=== PATIENT | female | born 1990 | race Caucasian/White ===

== ENCOUNTER 2017-12-04 12:16 | Emergency (ER) | payer SELFPAY ==
--- NOTE | 2017-12-04 13:29 | EDPHYS ---
Physician Documentation [facility] Name: Veda Pratt Age: 27 yrs Sex: Female : 1990 Arrival Date: 12/04/2017 Time: 12:18 Bed 14 Private MD: None, None ED Physician Irvin Rodriguez HPI: 12/04 12:49 This 27 yrs old Female presents to ER via Ambulatory with complaints of cp Depression, Anxiety, HALLUCINATIONS. 12:50 The patient presents to the emergency department with depression. cp 12:50 Onset: The symptoms/episode began/occurred gradually. Past psychiatric history: Prior cp diagnosis: anxiety, Psychiatric medications include: none, the patient does not have a previous inpatient psychiatric history. Associated signs and symptoms: Pertinent negatives: hallucinations. 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 - Social history:: Smoking status: Patient/guardian denies using tobacco. - Ebola Screening: : Patient negative for fever greater than or equal to 101.5 degrees Fahrenheit, and additional compatible Ebola Virus Disease symptoms. ROS: 12:55 Constitutional: Negative for body aches, chills, fever, poor PO intake. cp 12:55 Eyes: Negative for injury, pain, redness, and discharge. cp 12:55 ENT: Negative for drainage from ear(s), ear pain, sore throat, difficulty swallowing, difficulty handling secretions. 12:55 Cardiovascular: Negative for chest pain, edema, palpitations. 12:55 Respiratory: Negative for cough, shortness of breath, wheezing. 12:55 Abdomen/GI: Negative for abdominal pain, nausea, vomiting, and diarrhea. 12:55 Skin: Negative for cellulitis, rash. 12:55 Neuro: Negative for altered mental status, headache, weakness. 12:55 Psych: Positive for depression, insomnia, Negative for drug dependence, alcohol dependence. 12:55 All other systems are negative. Exam: 12:58 Constitutional: The patient appears in no acute distress, alert, awake, non-toxic, well cp developed, well nourished. 12:58 Head/Face: Normocephalic, atraumatic. Eyes: Pupils equal round and reactive to light, cp extra-ocular motions intact. Lids and lashes normal. Conjunctiva and sclera are non-icteric and not injected. Cornea within normal limits. Periorbital areas with no swelling, redness, or edema. ENT: Nares patent. No nasal discharge, no septal abnormalities noted. Tympanic membranes are normal and external auditory canals are clear. Oropharynx with no redness, swelling, or masses, exudates, or evidence of obstruction, uvula midline. Mucous membranes moist. Neck: Trachea midline, no thyromegaly or masses palpated, and no cervical lymphadenopathy. Supple, full range of motion without nuchal rigidity, or vertebral point tenderness. No Meningismus. Chest/axilla: Normal chest wall appearance and motion. Nontender with no deformity. No lesions are appreciated. 12:58 Cardiovascular: Rate: tachycardic, Rhythm: regular, Heart sounds: murmur, not appreciated. 12:58 Respiratory: the patient does not display signs of respiratory distress, Respirations: normal, no use of accessory muscles, no retractions, no splinting, no tachypnea, labored breathing, is not present, Breath sounds: are clear throughout, no decreased breath sounds, no stridor, no wheezing. 12:58 Abdomen/GI: Inspection: abdomen appears normal, Bowel sounds: active, all quadrants, Palpation: abdomen is soft and non-tender, in all quadrants, rebound tenderness, is not appreciated, voluntary guarding, is not appreciated, involuntary guarding, is not appreciated. 12:58 Back: pain, is absent, ROM is normal. 12:58 Skin: cellulitis, is not appreciated, no rash present. 12:58 Neuro: Orientation: to person, place \T\ time. Mentation: lucid, able to follow commands, Cerebellar function: is grossly normal, Motor: moves all fours, strength is normal, Sensation: no obvious gross deficits. 12:58 Psych: Behavior/mood is depressed, Affect is calm, Judgement / Insight is normal. Delusions/hallucinations are not present. Vital Signs: 12:26 BP 147 / 89; Pulse 111; Resp 20; Temp 97.9; Pulse Ox 99% on R/A; ph MDM: 12:39 Patient medically screened. cp 13:46 Data reviewed: vital signs, nurses notes, and as a result, I will discharge patient. cp 13:46 Counseling: I had a detailed discussion with the patient and/or guardian regarding: the cp historical points, exam findings, and any diagnostic results supporting the discharge/admit diagnosis, to return to the emergency department if symptoms worsen or persist or if there are any questions or concerns that arise at home. 12/04 12:48 Order name: Acetaminophen 12/04 12:48 Order name: Basic Metabolic Panel 12/04 12:39 Order name: Urine Dipstick-Ancillary (obtain specimen) 12/04 12:39 Order name: Urine Test (obtain specimen) 12/04 12:48 Order name: EKG - Nurse/Tech 12/04 12:48 Order name: IV Saline Lock 12/04 12:48 Order name: Labs collected and sent cp Administered Medications: No medications were administered Disposition: 13:16 Co-signature as Attending Physician, Irvin Rodriguez MD Spoke with patient when rn declined treatment, and does not want anything done, he wants to take her home right now, she denies suicidal ideation/homicidal ideation, states would never hurt her children, is comfortable taking her home, is taking days off to be with her, came in to get MRI brain, I offered him blood work and CT head, he declines, has appt with psychiatrist in 10 days, no previous psychiatric history. Will dc home in care of , return precautions given and understood.. Disposition: 12/04/17 13:29 Discharged to Home. Impression: Depression. - Condition is Stable. - Discharge Instructions: Major Depressive Disorder. - Medication Reconciliation Form, Thank You Letter, Antibiotic Education, Prescription Opioid Use form. - Follow up: Private Physician; When: 1 - 2 days; Reason: Recheck today's complaints. - Problem is new. - Symptoms are unchanged. Signatures: Dispatcher [employer] EDMS Irvin Rodriguez MD MD rn Smirch, Shelby, RN RN ss Hall, Patricia, RN RN ph Jose Luis Torres PA PA Sharmila Beaulieu RN RN rb1 Corrections: (The following items were deleted from the chart) 13:23 12:49 CBC+H.LAB.BRZ ordered. EDMS EDMS 13:23 12:49 PROTIME (+INR)+COAG.LAB.BRZ ordered. EDMS EDMS 13:23 12:50 PTT, ACTIVATED+COAG.LAB.BRZ ordered. EDMS EDMS 13: 12:50 SALICYLATE+C.LAB.BRZ ordered. EDMS EDMS 13: 12:50 URINE DRUG SCREEN+CHEM UR.LAB.BRZ ordered. EDMS EDMS 13: 12:50 Head Brain Wo Cont+CT.RAD.BRZ ordered. EDMS EDMS 13:24 12:49 ETHANOL+C.LAB.BRZ ordered. EDMS EDMS 13:25 12:49 Acetaminophen Level ordered. EDMS EDMS 13: 12:49 Basic Metabolic Panel ordered. EDMS EDMS 13:25 12:49 HEPATIC FUNCTION+C.LAB.BRZ ordered. EDMS EDMS 13:30 13:29 12/04/2017 13:29 Discharged to Home. Impression: Adjustment disorder with cp depressed mood. Condition is Stable. Forms are Medication Reconciliation Form, Thank You Letter, Antibiotic Education, Prescription Opioid Use. Follow up: Private Physician; When: 1 - 2 days; Reason: Recheck today's complaints. Problem is new. Symptoms are unchanged. cp 13:48 13:30 12/04/2017 13:29 Discharged to Home. Impression: Depression. Condition is Stable. ss Discharge Instructions: Adjustment Disorder, Adult. Forms are Medication Reconciliation Form, Thank You Letter, Antibiotic Education, Prescription Opioid Use. Follow up: Private Physician; When: 1 - 2 days; Reason: Recheck today's complaints. Problem is new. Symptoms are unchanged. cp
--- NOTE | 2017-12-04 13:29 | ER ---
Nurse's Notes [facility] Name: Veda Pratt Age: 27 yrs Sex: Female : 1990 Arrival Date: 12/04/2017 Time: 12:18 Bed 14 Private MD: None, None Diagnosis: Depression Presentation: 12/04 12:21 Presenting complaint: Significant other states: " She has been really depressed and ph having mood swings. She has been hallucinating too." Reports pt hx of anxiety, when asked about stressors at home pt reports "demonic activity" Pt reports insomnia and visual hallucinations, denies ETOH or drug use, states " I tried to stab myself in the chest a few days ago but I don't want to hurt myself now, I'm just tired and want to sleep.". Transition of care: patient was not received from another setting of care. Onset of symptoms was December 04, 2017. Risk Assessment: Do you want to hurt yourself or someone else? Patient reports no desire to harm self or others. Other: denied at this time but reports trying to harm herself "a few days ago.". Initial Sepsis Screen: Does the patient meet any 2 criteria? No. Patient's initial sepsis screen is negative. Does the patient have a suspected source of infection? No. Patient's initial sepsis screen is negative. Care prior to arrival: None. 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 - Social history:: Smoking status: Patient/guardian denies using tobacco. - Ebola Screening: : Patient negative for fever greater than or equal to 101.5 degrees Fahrenheit, and additional compatible Ebola Virus Disease symptoms. Screenin:38 Abuse screen: Denies threats or abuse. Nutritional screening: No deficits noted. rb1 Tuberculosis screening: No symptoms or risk factors identified. Fall Risk None identified. Assessment: 12:38 General: Appears in no apparent distress. comfortable, Behavior is calm, cooperative, rb1 Denies fever. General: Complains of insomnia and depression. Pt. denies wanting to hurt herself or others. Pt. stated, "I am really tired and I need to sleep." is at bedside.. Pain: Denies pain. Neuro: Level of Consciousness is awake, alert, obeys commands, Oriented to person, place, time, situation. Cardiovascular: Capillary refill < 3 seconds is brisk in bilateral fingers. Respiratory: Airway is patent Respiratory effort is even, unlabored, Respiratory pattern is regular, symmetrical. GI: No signs and/or symptoms were reported involving the gastrointestinal system. : No signs and/or symptoms were reported regarding the genitourinary system. Derm: Skin is pink, warm \\T\\ dry. 13:30 Reassessment: Patient appears in no apparent distress at this time. No changes from rb1 previously documented assessment. Psych: 12:38 Subjective: Patient's mood is Hallucinations are visual, happened 2 days ago. rb1 Objective: Patient is cooperative, Speech is normal, Affect is appropriate. Pt denies substance abuse. 12:38 Safety Checks: Personal items have been removed. Door is open. Visitors are present. rb1 Vital Signs: 12:26 BP 147 / 89; Pulse 111; Resp 20; Temp 97.9; Pulse Ox 99% on R/A; ph ED Course: 12:18 Patient arrived in ED. sb2 12:19 None, None is Private Physician. sb2 12:26 Triage completed. ph 12:27 Arm band placed on. ph 12:38 Patient has correct armband on for positive identification. Bed in low position. Call rb1 light in reach. Side rails up X 1. Pulse ox on. NIBP on. at bedside. 12:39 Jose Luis Torres PA is PHCP. cp 12:39 Irvin Rodriguez MD is Attending Physician. cp 12:45 Safety Checks: Personal items have been removed. The door is open or patient has been rb1 placed in a hallway bed/chair. A family member and/or friend is present and encouraged to stay. Sitter present at this time. 13:00 Safety Checks: Personal items have been removed. The door is open or patient has been rb1 placed in a hallway bed/chair. A family member and/or friend is present and encouraged to stay. Sitter present at this time. 13:15 Safety Checks: Personal items have been removed. The door is open or patient has been rb1 placed in a hallway bed/chair. A family member and/or friend is present and encouraged to stay. Sitter present at this time. 13:30 Safety Checks: Personal items have been removed. The door is open or patient has been rb1 placed in a hallway bed/chair. A family member and/or friend is present and encouraged to stay. Sitter present at this time. 13:45 Safety Checks: Personal items have been removed. The door is open or patient has been rb1 placed in a hallway bed/chair. A family member and/or friend is present and encouraged to stay. Sitter present at this time. 13:47 No provider procedures requiring assistance completed. Patient did not have IV access ss during this emergency room visit. Administered Medications: No medications were administered Outcome: 13:29 Discharge ordered by . fabian 13:[address] Rodriguez had detailed discussion with patient and family about ss follow up instructions. Pt left prior to receiving discharge paperwork. 13:47 Condition: good 13:47 Instructed on follow up and referral plans. 13:48 Patient left the ED. ss Signatures: Olivia Crabtree, RN RN ss Kristy Padilla, RN RN Jose Luis De La Rosa, PA PA Sharmila Beaulieu, RN RN rb1 Mary Roblero sb2
[2017-12-04 14:02] VITALS: BP 147/89; TEMP 97.9; O2SAT 99
== END 2017-12-04 13:48 | disposition home or self-care (01) ==
LOC: ER 12:16
DX: F32.9 Major depressive disorder, single episode, unspecified (principal)
CPT/HCPCS: 99284

== ENCOUNTER 2017-12-06 05:42 | Emergency (ER) | payer SELFPAY ==
[2017-12-06] MEDS ORDERED: NA CHLORIDE 0.9% 1,000 ML ONE ×2 (06:09→07:29)
[2017-12-06 06:17] LABS: Arterial Blood Carboxyhemoglob 0.5 % (0-1.5); Blood Gas Oxyhemoglobin 97.2 % (94-97); Blood O2 Saturation 98.6 % (92-98.5)
[2017-12-06 06:19] LABS: Absolute Monocytes 1.1 K/uL (0.1-1.3); Absolute Neutrophil 9.2 K/uL (1.8-8.0); Basophils % 0.6 % (0-1.3); Eosinophils % 0.1 % (0-4.4); Lymphocytes % 8.8 % (15.3-44.8); MCH 31.4 pg (27.0-35.0); MCV 89.5 fL (80-100); MPV 8.5 fL (7.6-11.3); Monocytes % 9.4 % (3.3-12.3); RBC Red Blood Cell Count 4.58 M/uL (3.86-4.86)
[2017-12-06 06:22] LABS: Protime INR 1.12
[2017-12-06 06:32] LABS: Barbiturates NEGATIVE (NEGATIVE); Benzodiazepines POSITIVE (NEGATIVE); Cocaine NEGATIVE (NEGATIVE); METHAMPHETAM NEGATIVE (NEGATIVE); Methadone NEGATIVE (NEGATIVE); Opiates NEGATIVE (NEGATIVE); Phencyclidine NEGATIVE (NEGATIVE); THC Cannibis NEGATIVE (NEGATIVE)
[2017-12-06] MEDS ORDERED: ONDANSETRON 4 MG/2 ML VIAL ONE (06:37)
[2017-12-06 06:47] LABS: Urine Blood NEGATIVE (NEG); Urine Glucose NEGATIVE (NEG); Urine Protein 2+ (NEG); Urine Specific Gravity >1.030 (1.005-1.030)
[2017-12-06 06:50] LABS: ALT/SGPT 20 U/L (12-78); AST/SGOT 17 U/L (15-37); Albumin 4.2 g/dL (3.4-5.0); Alkaline Phosphatase 77 U/L (45-117); BUN Blood Urea Nitrogen 14 mg/dL (7-18); Bicarbonate 23 mmol/L (21-32); Bilirubin Direct 0.2 mg/dL (0-0.2); Bilirubin Total 0.4 mg/dL (0.2-1.0); Glucose Level 182 mg/dL (74-106); Protein, Total 8.3 g/dL (6.4-8.2); Sodium Level 140 mmol/L (136-145)
[2017-12-06] MEDS ORDERED: HALOPERIDOL LACT 5 MG/ML INJ ONE (07:29)
[2017-12-06] MEDS ORDERED: KCL 20 MEQ/100 mL IVPB 20 MEQ/100 ML BAG IV ONE (07:29)
[2017-12-06] MEDS ORDERED: LORazepam 2 MG/ML VIAL ONE ×2 (09:40→20:02)
--- NOTE | 2017-12-06 09:52 | RAD REPORT ---
EXAM DESCRIPTION: CT - Head Brain Wo Cont - 12/06/2017 8:59 am CLINICAL HISTORY: Confusion COMPARISON: None. TECHNIQUE: Computed axial tomography of the head was obtained. IV contrast was not requested. Preliminary report was generated by virtual radiologic in review prior to this dictation All CT scans are performed using dose optimization technique as appropriate and may include automated exposure control or mA/KV adjustment according to patient size. FINDINGS: An intracranial bleed is not seen . The ventricles are normal in caliber. No extra-axial fluid collection is noted. Fluid within the sinuses/ mastoids is not seen. IMPRESSION: No acute intracranial abnormality is seen. If patient's symptoms persist MRI of the bra in would be recommended.
--- NOTE | 2017-12-06 12:09 | EKG ---
Test Date: 2017-12-06 Test Time: 05:47:50 Assistant Womens Volleyball Coach: TAMMI MEASUREMENT RESULTS: Intervals: Rate: 117 NE: 170 QRSD: 90 QT: 318 QTc: 443 Douglas: P: 70 NE: 170 QRS: 80 T: 3 INTERPRETIVE STATEMENTS: Sinus tachycardia Nonspecific ST and T wave abnormality Abnormal ECG Compared to ECG 07/17/2011 10:42:14 ST (T wave) deviation now present Electronically Signed On 12-06-17 12:07:15 CDT by Bebeto Garduno
[2017-12-07] MEDS ORDERED: LORAZEPAM 0.5 MG TABLET ONE ×2 (08:11→17:27)
--- NOTE | 2017-12-08 01:39 | ER ---
Nurse's Notes [facility] Name: Veda Pratt Age: 27 yrs Sex: Female : 1990 Arrival Date: 12/06/2017 Time: 05:43 Bed 16 Private MD: Diagnosis: Hallucinations, unspecified Presentation: 12/06 05:55 Presenting complaint: EMS states: Pt was found running down the street naked and was tl2 combative with police. EMS gave 250 mg ketamine en route. Pt is tachycardic and hypertensive. Transition of care: patient was not received from another setting of care. Onset of symptoms was December 06, 2017. Risk Assessment: Do you want to hurt yourself or someone else? Patient reports no desire to harm self or others. Initial Sepsis Screen: Does the patient meet any 2 criteria? No. Patient's initial sepsis screen is negative. Does the patient have a suspected source of infection? No. Patient's initial sepsis screen is negative. Care prior to arrival: Medication(s) given: ketamine 250 mg IM IV initiated. 20 GA, in the right antecubital area, Glucose check: 214. 05:55 Method Of Arrival: EMS: [facility] tl2 05:55 Acuity: BEKA 2 tl2 Triage Assessment: 05:57 General: Appears in no apparent distress. Behavior is unresponsive. Pain: Unable to use tl2 pain scale. Patient is unresponsive. EENT: Eyes. Neuro: Level of Consciousness is unresponsive, Pupils are constricted, nystagmus noted. Cardiovascular: Patient's skin is warm and dry. Rhythm is sinus rhythm. Respiratory: Airway is patent Respiratory effort is even, unlabored, Respiratory pattern is regular, symmetrical. GI: No signs and/or symptoms were reported involving the gastrointestinal system. Derm: Skin is pink, warm \\T\\ dry. Historical: - Allergies: 05:57 No Known Allergies; tl2 - Home Meds: 05:57 None [Active]; tl2 - PMHx: 05:57 Anxiety; Headaches; tl2 - PSHx: 05:57 Tubal ligation; tl2 - Immunization history:: Adult Immunizations up to date. - Social history:: Smoking status: unknown. - Ebola Screening: : No symptoms or risks identified at this time. Screenin:58 Abuse screen: Denies threats or abuse. Denies injuries from another. Nutritional bp screening: No deficits noted. Tuberculosis screening: No symptoms or risk factors identified. Fall Risk None identified. Assessment: 05:53 General: Appears in no apparent distress. Behavior is SEDATED. General: RECD 27YO WF bp VIA EMS. PT INITIALLY SUBDUED BY PD WHILE RUNNING NAKED DOWN THE STREET AND SCREAMING "PRABHJOT WILL NOT PREVAIL." PT COMBATIVE WITH PD AND EMS, MEDICATED WITH 250MG KETAMINE IM EN ROUTE. Pain: Unable to use pain scale. Patient is unresponsive. Neuro: Level of Consciousness is unresponsive, Oriented to none. Cardiovascular: Rhythm is sinus tachycardia. Respiratory: Airway is patent Respiratory effort is even, unlabored, Respiratory pattern is regular, tachypnea. GI: No signs and/or symptoms were reported involving the gastrointestinal system. : No deficits noted. EENT: HORIZONTAL NYSTAGMUS. Derm: Bruising that is SCATTERED. Musculoskeletal: UNABLE TO ASSESS AT THIS TIME. 06:20 Reassessment: PT TO CT WITH RETAIL SALES ADVISOR. bp 06:35 Reassessment: PT VOMITING IN CT. MD NOTIFIED, PT MEDICATED. bp 07:20 Neuro: Level of Consciousness is awake, alert, obeys commands, Oriented to person, la1 place, time, Reports visual and auditory hallucinations for the last 3 weeks, pt denies HI/SI. Cardiovascular: Capillary refill < 3 seconds Patient's skin is warm and dry. Respiratory: Airway is patent Respiratory effort is even, unlabored, Respiratory pattern is regular, symmetrical. GI: No signs and/or symptoms were reported involving the gastrointestinal system. : No signs and/or symptoms were reported regarding the genitourinary system. 08:16 Reassessment: Pt laying in bed, arousable, denies discomfort. Family remains at bedside.jl7 09:10 Reassessment: [facility] at bedside. jl7 09:40 Reassessment: Pt appears to be agitated, ripped animal technician off, IV out of left AC, jl7 removed BP cuff and pulse ox. Provider notified, see MAR for orders. Family instructed to go to lobby if they need to talk so the pt can rest and to notify staff if they all leave. , mother and sister at bedside. 10:15 Reassessment: Pt laying in bed with eyes closed, respirations even and unlabored, no jl7 signs of distress noted at this time. 11:30 Reassessment: Patient and/or family updated on plan of care and expected duration. Pain jl7 level reassessed. Patient is alert, oriented x 3, equal unlabored respirations, skin warm/dry/pink. 13:30 Reassessment: Patient and/or family updated on plan of care and expected duration. Pain jl7 level reassessed. Patient is alert, oriented x 3, equal unlabored respirations, skin warm/dry/pink. 15:30 Reassessment: Pt sitting in bed visiting with family at this time. jl7 16:26 Reassessment: Patient appears in no apparent distress at this time. No changes from jl7 previously documented assessment. Patient and/or family updated on plan of care and expected duration. Pain level reassessed. Patient is alert, oriented x 3, equal unlabored respirations, skin warm/dry/pink. 18:12 Reassessment: Patient and/or family updated on plan of care and expected duration. Pain jl7 level reassessed. Patient is alert, oriented x 3, equal unlabored respirations, skin warm/dry/pink. Pt laying in bed, at bedside. Awaiting transfer. 19:22 Reassessment: Patient appears in no apparent distress at this time. Patient and/or tl2 family updated on plan of care and expected duration. Pain level reassessed. Patient is alert, oriented x 3, equal unlabored respirations, skin warm/dry/pink. General: Appears in no apparent distress. comfortable, Behavior is calm, cooperative, appropriate for age, Mother is at bedside. Pt asking when she will be able to go home. Explained warrant and that she will be required to stay and be transferred . Pain: Denies pain. Neuro: Level of Consciousness is awake, alert, obeys commands, Oriented to person, place, time, situation. Respiratory: Airway is patent Respiratory effort is even, unlabored, Respiratory pattern is regular, symmetrical. GI: No signs and/or symptoms were reported involving the gastrointestinal system. : No signs and/or symptoms were reported regarding the genitourinary system. Derm: Bruising that is scattered. 20:00 Reassessment: Patient appears in no apparent distress at this time. Pt requested tl2 medication for anxiety, TIER TRUCK DRIVER notified, new meds ordered see MAY. 12/07 00:42 Reassessment: Pt appears to be sleeping, RR even and unlabored. Mother at bedside and tl2 will be staying for the rest of the night. 07:50 Reassessment: Patient appears in no apparent distress at this time. pt and pts mother tw2 asking if pt can just go home and then follow up with a psychiatrist. Dr. Hendricks and myself present to explain the process and best course of continuation of care with pt and pts mother. Pt educated as to the need for transfer. Pt agreeable at this time. Pt explains that she has 3 kids at home that she doesn't want to leave for long periods of time. Currently waiting for bed assignment at this time. 08:45 Reassessment: pt was escorted to shower by Jerry Ellis at this time, room was cleaned tw2 and linens changed at this time. 09:45 Reassessment: Patient appears in no apparent distress at this time. No changes from tw2 previously documented assessment. Patient and/or family updated on plan of care and expected duration. Pain level reassessed. Patient is alert, oriented x 3, equal unlabored respirations, skin warm/dry/pink. mother remains at bedside. 10:35 Reassessment: Patient appears in no apparent distress at this time. No changes from tw2 previously documented assessment. Patient and/or family updated on plan of care and expected duration. Pain level reassessed. Patient is alert, oriented x 3, equal unlabored respirations, skin warm/dry/pink. mother remains at bedside at this time. 11:50 Reassessment: Patient appears in no apparent distress at this time. No changes from tw2 previously documented assessment. Patient and/or family updated on plan of care and expected duration. Pain level reassessed. Patient is alert, oriented x 3, equal unlabored respirations, skin warm/dry/pink. 12:50 Reassessment: Patient appears in no apparent distress at this time. No changes from tw2 previously documented assessment. Patient and/or family updated on plan of care and expected duration. Pain level reassessed. Patient is alert, oriented x 3, equal unlabored respirations, skin warm/dry/pink. 13:54 Reassessment: Patient appears in no apparent distress at this time. No changes from tw2 previously documented assessment. Patient and/or family updated on plan of care and expected duration. Pain level reassessed. Patient is alert, oriented x 3, equal unlabored respirations, skin warm/dry/pink. 14:48 Reassessment: Patient appears in no apparent distress at this time. No changes from tw2 previously documented assessment. Patient and/or family updated on plan of care and expected duration. Pain level reassessed. Patient is alert, oriented x 3, equal unlabored respirations, skin warm/dry/pink. pts remains at bedside at this time. 15:50 Reassessment: Patient appears in no apparent distress at this time. No changes from tw2 previously documented assessment. Patient and/or family updated on plan of care and expected duration. Pain level reassessed. Patient is alert, oriented x 3, equal unlabored respirations, skin warm/dry/pink. 16:50 Reassessment: Patient appears in no apparent distress at this time. No changes from tw2 previously documented assessment. Patient and/or family updated on plan of care and expected duration. Pain level reassessed. Patient is alert, oriented x 3, equal unlabored respirations, skin warm/dry/pink. 17:15 Reassessment: Patient appears in no apparent distress at this time. Patient and/or tw2 family updated on plan of care and expected duration. Pain level reassessed. Patient is alert, oriented x 3, equal unlabored respirations, skin warm/dry/pink. pt c/o anxiety, medicated as ordered per Dr. Hendricks. 18:22 Reassessment: Patient appears in no apparent distress at this time. Patient and/or tw2 family updated on plan of care and expected duration. Pain level reassessed. Patient is alert, oriented x 3, equal unlabored respirations, skin warm/dry/pink. 19:08 Reassessment: Patient appears in no apparent distress at this time. Patient and/or aa1 family updated on plan of care and expected duration. Pain level reassessed. Patient is alert, oriented x 3, equal unlabored respirations, skin warm/dry/pink. Pt awaiting acceptance to psychiatric facility for suspected new onset of schizophrenia. Pt denies thoughts of harming self or others. Mother at bedside Patient denies pain at this time. 22:04 Reassessment: Patient appears in no apparent distress at this time. No changes from aa1 previously documented assessment. Patient and/or family updated on plan of care and expected duration. Pain level reassessed. Patient is alert, oriented x 3, equal unlabored respirations, skin warm/dry/pink. Pt still awaiting transfer to psychiatric facility. 12/08 01:51 Reassessment: Patient appears in no apparent distress at this time. Patient is alert, aa1 oriented x 3, equal unlabored respirations, skin warm/dry/pink. Per TIER TRUCK DRIVER, ok to d/c pt at this time with mother and continue with f/u appt they have scheduled for the . Discussed d/c \\T\\ f/u instructions with pt \\T\\ mother; denies questions or concerns at this time. Vital Signs: 12/06 05:57 BP 162 / 105; Pulse 118; Resp 21; Temp 98.6(R); Pulse Ox 98% on R/A; Weight 81.65 kg; tl2 Height 5 ft. 8 in. (172.72 cm); 07:38 BP 138 / 89; Pulse 74; Resp 16; Pulse Ox 99% on R/A; la1 08:35 BP 120 / 82; Pulse 84; Resp 16 S; Pulse Ox 100% on R/A; jl7 11:50 BP 111 / 63; Pulse 98; Resp 17; Pulse Ox 99% ; mh5 12:50 BP 125 / 88; Pulse 84; Resp 17; Pulse Ox 100% on R/A; mh5 14:10 BP 119 / 58; Pulse 80; Resp 17; Pulse Ox 98% on R/A; mh5 16:27 BP 140 / 89; Pulse 95; Resp 16 S; Pulse Ox 98% on R/A; jl7 18:11 BP 130 / 83; Pulse 79; Resp 16 S; Pulse Ox 98% on R/A; jl7 12/07 01:45 BP 150 / 91; Pulse 109; Resp 20; Pulse Ox 99% on R/A; tl2 06:44 BP 145 / 82; Pulse 100; Resp 20; Temp 98.8; Pulse Ox 99% on R/A; oe 13:56 BP 130 / 83; Pulse 87; Resp 17; Temp 98.4(O); Pulse Ox 100% on R/A; tw2 18:25 BP 119 / 74; Pulse 88; Resp 17; Pulse Ox 99% on R/A; tw2 22:04 BP 128 / 74; Pulse 79; Resp 16; Temp 98.4; Pulse Ox 99% on R/A; Pain 0/10; aa1 12/06 05:57 Body Mass Index 27.37 (81.65 kg, 172.72 cm) tl2 ED Course: 12/06 05:43 Patient arrived in ED. ds1 05:53 Oziel Worthington, RN is Primary Nurse. bp 05:57 Triage completed. tl2 05:57 Straight cath inserted, using sterile technique, 16 Fr. Specimen obtained. Returned bp clear yellow urine. Maintain EMS IV. Dressing intact. Good blood return noted. Site clean \\T\\ dry. Gauge \\T\\ site: 20 GAUGE RIGHT AC. 05:57 Arm band placed on right wrist. tl2 05:58 Patient has correct armband on for positive identification. Placed in gown. Bed in low bp position. Call light in reach. Side rails up X2. 06:00 Greyson Delgado MD is Attending Physician. gs 06:05 Inserted saline lock: 20 gauge in left antecubital area, using aseptic technique. Blood cc3 collected. 06:58 CT Head Brain wo Cont In Process Unspecified. EDMS 06:59 CT completed. Patient was nauseous during exam. ER nurse (Oziel) came to give kw1 medication to help with nauseouness. Patient moved back from CT. 07:00 Steffen Serna PA is PHCP. jr8 07:01 Vinay Garcia MD is Attending Physician. jr8 07:45 [facility] was called for assessment on the patient for placement. They are notifying ag the strategic sourcing consultantcall or contact centre manager. 08:16 Primary Nurse role handed off by Oziel Worthington RN jl7 08:16 Marichuy Coleman RN is Primary Nurse. jl7 10:24 Elli from [facility] call to notified that they have no beds available. ag 10:35 Nyla from [facility] call and said they have no beds for men and women. Possibly ag Friday they might have beds after discharges. 10:42 Noemy with [facility] has no beds they are pending dischages. ag 11:45 Safety checks: Items removed: yes. Door open/sign placed on door: yes. Family/friend mh5 present: no. Sitter present: Yes. 12:00 Safety checks: Items removed: yes. Door open/sign placed on door: yes. Family/friend mh5 present: yes. Family/friends encouraged to stay with patient. Sitter present: Yes. 12:15 Safety checks: Items removed: yes. Door open/sign placed on door: yes. Family/friend mh5 present: yes. Family/friends encouraged to stay with patient. Sitter present: Yes. 12:17 Diet: Patient given a regular meal tray. mh5 12:30 Safety checks: Items removed: yes. Door open/sign placed on door: yes. Family/friend mh5 present: yes. Sitter present: Yes. 12:45 Safety checks: Items removed: yes. Door open/sign placed on door: yes. Family/friend mh5 present: yes. Sitter present: Yes. 13:00 Safety checks: Items removed: yes. Door open/sign placed on door: yes. Family/friend mh5 present: yes. Sitter present: Yes. 13:15 Safety checks: Items removed: yes. Door open/sign placed on door: yes. Family/friend mh5 present: yes. Family/friends encouraged to stay with patient. Sitter present: Yes. 13:30 Safety checks: Items removed: yes. Door open/sign placed on door: yes. Family/friend mh5 present: yes. Family/friends encouraged to stay with patient. Sitter present: Yes. 13:45 Safety checks: Items removed: yes. Door open/sign placed on door: yes. Family/friend mh5 present: yes. Family/friends encouraged to stay with patient. Sitter present: Yes. 14:00 Safety checks: Items removed: yes. Door open/sign placed on door: yes. Family/friend mh5 present: yes. Sitter present: Yes. 14:15 Safety checks: Items removed: yes. Door open/sign placed on door: yes. Family/friend mh5 present: yes. Family/friends encouraged to stay with patient. Sitter present: Yes. 14:30 Safety checks: Items removed: yes. Door open/sign placed on door: yes. Family/friend mh5 present: yes. Family/friends encouraged to stay with patient. Sitter present: Yes. 18:06 PHCP role handed off by Steffen Serna PA pm1 18:06 Yousuf Wong NP is PHCP. pm1 18:53 Primary Nurse role handed off by Marichuy Coleman RN jl7 20:30 [facility] called back and turned down the transfer due to lack of staff. rg2 20:36 Angeline Talavera RN is Primary Nurse. tl2 12/07 05:25 [facility] has no beds. need to re-fax in the morning. rg2 06:56 Primary Nurse role handed off by Angeline Talavera RN tw2 06:56 Lana Draper RN is Primary Nurse. tw2 07:40 Attending Physician role handed off by Vinay Garcia MD ma2 07:40 Tyron Hendricks MD is Attending Physician. ma2 08:00 Spoke to Anita Marcus at [facility] about status and was informed that she does have a ag bed.The bed is being held for her until adequately staffed on Friday. 08:39 All clinical's refaxed to all psych facilities. ag 09:26 Ciro at [facility] have no beds. They are at capacity. ag 09:50 Nyla at [facility] called and informed us still no beds available. ag 12:32 [facility] called and said Dr. Holly has denied the patient for ag transfer because our provider did not notify him that she was combative and given Ketamine prior to arrival. So for this matter and she has been denied for being combative. 12/08 01:53 No provider procedures requiring assistance completed. IV discontinued, intact, aa1 bleeding controlled, No redness/swelling at site. Pressure dressing applied. Administered Medications: 12/06 06:05 Drug: NS 0.9% 1000 ml Route: IV; Rate: 1 bolus; Site: left antecubital; bp 06:35 Drug: Zofran 8 mg Route: IVP; Site: left antecubital; bp 06:36 Follow up: Response: Nausea is decreased bp 08:11 Follow up: Response: No adverse reaction la1 07:37 Drug: Potassium Chloride 20 mEq Route: IV; Rate: calculated rate; Site: right la1 antecubital; 07:37 Drug: NS 0.9% 1000 ml Route: IV; Rate: 125 ml/hr; Site: right antecubital; la1 07:37 Drug: HALdol 5 mg Route: IVP; Site: right antecubital; la1 08:11 Follow up: Response: Nausea is decreased la1 09:40 Drug: Ativan 2 mg Route: IVP; Site: right antecubital; jl7 10:00 Follow up: Response: No adverse reaction; Marked relief of symptoms jl7 20:00 Drug: Ativan 1 mg Route: IVP; Site: right antecubital; tl2 21:00 Follow up: Response: No adverse reaction; Marked relief of symptoms tl2 12/07 08:05 Drug: Ativan 0.5 mg Route: PO; tw2 09:33 Follow up: Response: No adverse reaction tw2 17:21 Drug: Ativan 0.5 mg Route: PO; tw2 17:40 Follow up: Response: No adverse reaction tw2 Outcome: 12/08 01:38 Discharge ordered by MD. pm1 01:53 Discharged to home ambulatory, with family. aa1 01:53 Condition: good 01:53 Discharge instructions given to patient, family, Instructed on discharge instructions, follow up and referral plans. medication usage, Demonstrated understanding of instructions, follow-up care, medications, Prescriptions given X 2. 01:54 Patient left the ED. aa1 Signatures: Dispatcher [employer] EDMS Lu Moya rg2 Lili Thomas RN RN aa1 Karen Ayoub ds1 Steffen Serna PA PA jr8 Balaji Self RN RN la1 Kaitlynn Whitney Patrick, APARNA TIER TRUCK DRIVER pm1 Lana Draper RN RN tw2 Angeline Talavera RN RN tl2 Karri Buckley Maria Marichuy Kay RN RN jl7 Greyson Delgado MD MD gs Peltier, Brian, RN RN bp Wilhelm, Kimberly kw1 Tyron Hendricks MD MD ma2 Mercedes López cc3 Corrections: (The following items were deleted from the chart) 12/06 10:39 10:35 Nyla from [facility] call and said they have no beds for men and women. ag Possibly Friday they might have beds. ag 11:53 11:48 Safety checks: Items removed: yes. Door open/sign placed on door: yes. [facility] Family/friend present: no. Sitter present: Yes. [facility] 12/07 01:46 01:45 BP 151 / 90; Pulse 109bpm; Resp 18bpm; Pulse Ox 100% RA; oe oe
--- NOTE | 2017-12-08 01:39 | EDPHYS ---
Physician Documentation [facility] Name: Veda Pratt Age: 27 yrs Sex: Female : 1990 Arrival Date: 12/06/2017 Time: 05:43 Bed 16 Private MD: ED Physician Tyron Hendricks HPI: 12/06 06:39 This 27 yrs old Female presents to ER via EMS with complaints of Altered gs Mental Status. 06:39 The patient presents with decreased mental status. Onset: The symptoms/episode gs began/occurred acutely, just prior to arrival. Possible causes: drug use, and ems gave pt 250 of ketamine. Unable to obtain HPI due to patient distress. pt delusional running naked in street, delirious. Historical: - Allergies: 05:57 No Known Allergies; tl2 - Home Meds: 05:57 None [Active]; tl2 - PMHx: 05:57 Anxiety; Headaches; tl2 - PSHx: 05:57 Tubal ligation; tl2 - Immunization history:: Adult Immunizations up to date. - Social history:: Smoking status: unknown. - Ebola Screening: : No symptoms or risks identified at this time. ROS: 06:39 Unable to obtain ROS due to patient distress. gs Exam: 06:38 ECG was reviewed by the Attending Physician. gs 06:39 Head/Face: Normocephalic, atraumatic. Eyes: Pupils equal round and reactive to light, gs extra-ocular motions intact. Lids and lashes normal. Conjunctiva and sclera are non-icteric and not injected. Cornea within normal limits. Periorbital areas with no swelling, redness, or edema. ENT: Nares patent. No nasal discharge, no septal abnormalities noted. Tympanic membranes are normal and external auditory canals are clear. Oropharynx with no redness, swelling, or masses, exudates, or evidence of obstruction, uvula midline. Mucous membranes moist. Neck: Trachea midline, no thyromegaly or masses palpated, and no cervical lymphadenopathy. Supple, full range of motion without nuchal rigidity, or vertebral point tenderness. No Meningismus. Chest/axilla: Normal chest wall appearance and motion. Nontender with no deformity. No lesions are appreciated. 06:39 Constitutional: The patient appears lethargic. 06:39 Cardiovascular: Rate: tachycardic, Rhythm: regular, Pulses: no pulse deficits are appreciated. 06:39 Respiratory: the patient does not display signs of respiratory distress, Respirations: normal, Breath sounds: are clear throughout, handling secretions no drooling choking. 06:39 Abdomen/GI: Palpation: abdomen is soft and non-tender. 06:39 Musculoskeletal/extremity: Exam is negative for acute changes. 06:39 Skin: Exam negative for acute changes. 06:39 Neuro: Orientation: Not oriented to person, place, time, situation, Cranial nerves: Nystagmus with fast component in inner aspect of conjuctiva of right eye and outer aspect of conjuctiva of left eye. disconjugate gaze. Vital Signs: 05:57 BP 162 / 105; Pulse 118; Resp 21; Temp 98.6(R); Pulse Ox 98% on R/A; Weight 81.65 kg; tl2 Height 5 ft. 8 in. (172.72 cm); 07:38 BP 138 / 89; Pulse 74; Resp 16; Pulse Ox 99% on R/A; la1 08:35 BP 120 / 82; Pulse 84; Resp 16 S; Pulse Ox 100% on R/A; jl7 11:50 BP 111 / 63; Pulse 98; Resp 17; Pulse Ox 99% ; mh5 12:50 BP 125 / 88; Pulse 84; Resp 17; Pulse Ox 100% on R/A; mh5 14:10 BP 119 / 58; Pulse 80; Resp 17; Pulse Ox 98% on R/A; mh5 16:27 BP 140 / 89; Pulse 95; Resp 16 S; Pulse Ox 98% on R/A; jl7 18:11 BP 130 / 83; Pulse 79; Resp 16 S; Pulse Ox 98% on R/A; jl7 12/07 01:45 BP 150 / 91; Pulse 109; Resp 20; Pulse Ox 99% on R/A; tl2 06:44 BP 145 / 82; Pulse 100; Resp 20; Temp 98.8; Pulse Ox 99% on R/A; oe 13:56 BP 130 / 83; Pulse 87; Resp 17; Temp 98.4(O); Pulse Ox 100% on R/A; tw2 18:25 BP 119 / 74; Pulse 88; Resp 17; Pulse Ox 99% on R/A; tw2 22:04 BP 128 / 74; Pulse 79; Resp 16; Temp 98.4; Pulse Ox 99% on R/A; Pain 0/10; aa1 12/06 05:57 Body Mass Index 27.37 (81.65 kg, 172.72 cm) tl2 MDM: 12/06 06:01 Patient medically screened. 06:39 Data reviewed: vital signs, nurses notes, lab test result(s), radiologic studies. gs 09:00 Data interpreted: Pulse oximetry: on room air is 100 %. Counseling: I had a detailed jr8 discussion with the patient and/or guardian regarding: the historical points, exam findings, and any diagnostic results supporting the discharge/admit diagnosis, lab results, radiology results. ED course: After patient woke up more from sedation I was able to talk to her and family. Patient has been having subtle psychiatric changes over the past couple of weeks from what family has said. Stated that it became acute worse over the past 5 days. Noticed that when she is praying was speaking in different tongues. Would say she sees angles and sometime could not understand her children . 16:13 ED course: Did Doc-Doc with [facility]. Would hold bed and accept. Pending bed jr8 assignment though due to her acuity. Stated that they will have to have one of there higher acuity beds open which they are waiting for opening . 20:30 ED course: [facility] called back and canceled transfer due lack of staff availability. pm1 12/08 01:38 ED course: Patient and mother want to go home. Patient denies homicidal or suicidal pm1 ideation. Patient has not had any hallucinations during the ER visit with the medications given. She believes that it might have been triggered by anxiety and the Ativan has been working well. Patient's has set up an appointment with psychiatrist on 12/16. Patient would like some medications, Ativan, until she is seen by the psychiatrist. Discussed patient's wishes with Dr. Delgado: patient can be discarded with Risperdal daily and Ativan PRN. Patient has good family support and patient feels comfortable going home since she has not had any further hallucinations during ER visit . 12/06 05:57 Order name: Urine Dipstick--Ancillary (enter results); Complete Time: 07:02 ms 12/06 05:57 Order name: Urine --Ancillary (enter results); Complete Time: 07:02 va 12/06 06:00 Order name: Acetaminophen; Complete Time: 07:02 12/06 06:00 Order name: Basic Metabolic Panel; Complete Time: 07:02 12/06 06:00 Order name: CBC with Diff; Complete Time: 07:02 12/06 06:00 Order name: ETOH Level; Complete Time: 07:02 12/06 06:00 Order name: Hepatic Function; Complete Time: 07:02 12/06 06:00 Order name: PT-INR; Complete Time: 07:02 12/06 06:00 Order name: Urine Drug Screen; Complete Time: 07:02 12/06 06:00 Order name: ABG; Complete Time: 07:02 12/06 06:00 Order name: CT Head Brain wo Cont; Complete Time: 10:05 12/06 06:45 Order name: CPK; Complete Time: 08:29 12/06 06:00 Order name: EKG; Complete Time: 06:00 12/06 11:23 Order name: Diet Regular; Complete Time: 11:24 em 12/06 16:21 Order name: Diet Regular; Complete Time: 16:21 7 12/07 05:11 Order name: Diet Regular; Complete Time: 05:11 2 12/07 08:13 Order name: Diet Regular; Complete Time: 08:13 2 12/07 10:45 Order name: Diet Regular; Complete Time: 10:46 5 12/07 10:45 Order name: Diet Regular; Complete Time: 10:46 [facility] 12/07 16:42 Order name: Diet Regular; Complete Time: 16:42 2 12/07 16:42 Order name: Diet Regular; Complete Time: 16:42 [facility] 12/06 06:00 Order name: EKG - Nurse/Tech; Complete Time: 06:02 12/06 06:00 Order name: IV Saline Lock; Complete Time: 06:02 12/06 06:00 Order name: Labs collected and sent; Complete Time: 06:02 12/06 06:00 Order name: Urine Dipstick-Ancillary (obtain specimen); Complete Time: 06:02 EC/15 06:38 Rate is 117 beats/min. Rhythm is regular. WV interval is normal. QRS interval is gs normal. QT interval is normal. T waves are Flattened. Clinical impression: NSR w/ Non-specific ST/T Changes. Interpreted by me. Administered Medications: 06:05 Drug: NS 0.9% 1000 ml Route: IV; Rate: 1 bolus; Site: left antecubital; bp 06:35 Drug: Zofran 8 mg Route: IVP; Site: left antecubital; bp 06:36 Follow up: Response: Nausea is decreased bp 08:11 Follow up: Response: No adverse reaction la1 07:37 Drug: Potassium Chloride 20 mEq Route: IV; Rate: calculated rate; Site: right la1 antecubital; 07:37 Drug: NS 0.9% 1000 ml Route: IV; Rate: 125 ml/hr; Site: right antecubital; la1 07:37 Drug: HALdol 5 mg Route: IVP; Site: right antecubital; la1 08:11 Follow up: Response: Nausea is decreased la1 09:40 Drug: Ativan 2 mg Route: IVP; Site: right antecubital; jl7 10:00 Follow up: Response: No adverse reaction; Marked relief of symptoms jl7 20:00 Drug: Ativan 1 mg Route: IVP; Site: right antecubital; tl2 21:00 Follow up: Response: No adverse reaction; Marked relief of symptoms tl2 12/07 08:05 Drug: Ativan 0.5 mg Route: PO; tw2 09:33 Follow up: Response: No adverse reaction tw2 17:21 Drug: Ativan 0.5 mg Route: PO; tw2 17:40 Follow up: Response: No adverse reaction tw2 Disposition: 12/08 07:53 Co-signature as Attending Physician, Vinay Garcia MD I agree with the assessment and wa plan of care. Disposition: 12/08/17 01:38 Discharged to Home. Impression: Hallucinations, unspecified. - Condition is Stable. - Prescriptions for risperidone 2 mg Oral tablet - take 1 tablet by ORAL route once daily for 10 days; 10 tablet. Ativan 0.5 mg Oral Tablet - take 1 tablet by ORAL route every 8 hours As needed; 10 tablet. - SBAR form, Medication Reconciliation Form, Thank You Letter form. - Follow up: Emergency Department; When: As needed; Reason: Worsening of condition. Follow up: Private Physician; When: 2 - 3 days; Reason: Recheck today's complaints, Continuance of care, Re-evaluation by your physician. - Problem is new. - Symptoms have improved. Signatures: Dispatcher [employer] EDMS Lili Thomas, RN RN aa1 Steffen Serna, SHARONDA PA jr8 Balaji Self RN RN la1 Yousuf Wong, REED POLISHER REED POLISHER pm1 Lana Draper RN RN tw2 Angeline Talavera, RN RN tl2 Marichuy Coleman RN RN jl7 Greyson Delgado MD MD gs Appiah, William, MD MD wa Peltier, Brian RN RN bp Corrections: (The following items were deleted from the chart) 01:54 01:38 12/08/2017 01:38 Discharged to Home. Impression: Hallucinations, unspecified. aa1 Condition is Stable. Forms are SBAR form, Medication Reconciliation Form, Thank You Letter, Antibiotic Education, Prescription Opioid Use. Follow up: Emergency Department; When: As needed; Reason: Worsening of condition. Follow up: Private Physician; When: 2 - 3 days; Reason: Recheck today's complaints, Continuance of care, Re-evaluation by your physician. Problem is new. Symptoms have improved. pm1
[2017-12-08 02:12] VITALS: TEMP 98.4
[2017-12-08 02:13] VITALS: O2SAT 99
[2017-12-08 02:14] VITALS: BP 128/74
== END 2017-12-08 01:54 | disposition home or self-care (01) ==
LOC: ER 05:42
DX: R44.3 Hallucinations, unspecified (principal)
CPT/HCPCS: 36415; 51702; 70450; 80048; 80076; 80307; 80320; 80329; 81003; 81025; 82550; 82805; 85025; 85610; 93005; 99285; J1630; J2405; J7030

== ENCOUNTER 2019-03-15 10:42 | Emergency (ER) | payer SELFPAY ==
--- NOTE | 2019-03-15 11:27 | ER ---
Nurse's Notes [facility] Name: Veda Pratt Age: 28 yrs Sex: Female : 1990 Arrival Date: 03/15/2019 Time: 10:44 Bed 8 Private MD: Diagnosis: Anxiety disorder, unspecified Presentation: 03/15 10:47 Presenting complaint: Patient states: denies visual hallucinations but reports auditory sv hallucination where she hears noises. Pt denies suicidal or homicidal ideation. states: "She's been getting these waves of paranoia, she's not getting enough sleep and she's been getting these thoughts regarding her safety." Pt has seen [facility] and was prescribed medication but feel like it is not working. Transition of care: patient was not received from another setting of care. Onset of symptoms was March 15, 2019. Risk Assessment: Do you want to hurt yourself or someone else? Patient reports no desire to harm self or others. Care prior to arrival: None. 10:47 Method Of Arrival: Ambulatory sv 10:47 Acuity: BEKA 2 sv 10:51 Note Reports that she only took Risperdal for a few days and stopped taking it. Reports sv her sister (who is a nurse) gave her some Abilify to take and took a day of that medicine. 11:38 Initial Sepsis Screen: Does the patient meet any 2 criteria? HR > 90 bpm. No. Patient's ph initial sepsis screen is negative. Does the patient have a suspected source of infection? No. Patient's initial sepsis screen is negative. Historical: - Allergies: 10:51 No Known Allergies; sv - Home Meds: 10:51 Risperdal Oral [Active]; sv - PMHx: 10:51 Anxiety; Headaches; Schizoeffect; sv - PSHx: 10:51 Tubal ligation; sv - Immunization history:: Adult Immunizations unknown. - Social history:: Patient/guardian denies using alcohol, street drugs, The patient lives with family, Smoking status: Patient/guardian denies using tobacco. - Family history:: not pertinent. - Ebola Screening: : No symptoms or risks identified at this time. - Hospitalizations: : No recent hospitalization is reported. Screenin:37 Abuse screen: Denies threats or abuse. Denies injuries from another. Nutritional ph screening: No deficits noted. Tuberculosis screening: No symptoms or risk factors identified. Fall Risk None identified. Assessment: 11:40 General: Appears in no apparent distress. comfortable, well groomed, Behavior is calm, ph cooperative, appropriate for age. Pain: Denies pain. Neuro: Level of Consciousness is awake, alert, obeys commands, Oriented to person, place, time, situation. Cardiovascular: Capillary refill < 3 seconds in bilateral fingers Patient's skin is warm and dry. Respiratory: Airway is patent Respiratory effort is even, unlabored, Respiratory pattern is regular, symmetrical. Derm: Skin is intact, is healthy with good turgor, Skin is pink, warm \\T\\ dry. Musculoskeletal: Circulation, motion, and sensation intact. Range of motion: intact in all extremities. Psych: 11:38 Subjective: Patient's mood is sad, Delusions are denied, Hallucinations are auditory, ph Having thoughts of denies HI or SI. Objective: Patient is cooperative, Speech is normal, Affect is appropriate. Suicide Risk Assessment: Sad Person Scale: Sex of patient: Female: Score 0 points. Age of patient: Score 1 point if patient 15-34. Depression: Score 0 point if signs of depression are not present. Previous Attempt: Score 1 point if patient has previously attempted suicide. Substance Abuse: Score 0 point if patient does not abuse alcohol or drugs. Rational Thinking: Score 0 point if patient has rational thinking. Social Support: Score 0 if social support is present/available. Organized Plan: Score 0 if patient did not have an organized plan in place. Relationship: Score 0 point if patient has a spouse or domestic partner. Chronic Sickness: Score 0 point if patient does not have a chronic illness, debilitating, or severe disorder. TOTAL POINTS: If total points are 0-2, proposed clinical action is to send home with follow-up. Safety Checks: Personal items have not been removed. Door is closed to patient's room. Visitors are present. pt not suicidal or homicidal. Pt denies substance abuse. Vital Signs: 10:52 BP 139 / 105; Pulse 146; Resp 16; Temp 97.9; Pulse Ox 98% ; Weight 77.11 kg; Height 5 sv ft. 5 in. (165.10 cm); Pain 0/10; 11:37 BP 127 / 98; Pulse 115; Resp 18; Temp 98.0; Pulse Ox 99% on R/A; ph 10:52 Body Mass Index 28.29 (77.11 kg, 165.10 cm) sv ED Course: 10:44 Patient arrived in ED. as 10:50 Triage completed. sv 10:52 Arm band placed on. sv 10:55 Tyron Hendricks MD is Attending Physician. ma2 11:37 Kristy Padilla, RN is Primary Nurse. ph 11:38 No provider procedures requiring assistance completed. Patient did not have IV access ph during this emergency room visit. 11:40 Patient has correct armband on for positive identification. Bed in low position. Side ph rails up X 1. Pulse ox on. NIBP on. Door closed. Noise minimized. Warm blanket given. Administered Medications: 11:45 Drug: Ativan 1 mg Route: PO; ph 11:53 Follow up: Response: No adverse reaction ph Outcome: 11:26 Discharge ordered by . ma2 11:45 Patient left the ED. ph 11:45 Discharged to home ambulatory, with significant other. ph 11:45 Condition: good 11:45 Discharge instructions given to patient, significant other, Instructed on discharge instructions, follow up and referral plans. medication usage, Demonstrated understanding of instructions, follow-up care, medications, Prescriptions given X 1. Signatures: Opal Thompson RN RN Salma Yang as Kristy Padilla RN RN Tyron Hendricks MD MD [facility] Corrections: (The following items were deleted from the chart) 10:54 10:47 Acuity: BEKA 3 sv sv 10:54 10:52 Resp 16bpm; Pulse Ox 98%; Temp 97.9F; 77.11 kg; Height 5 ft. 5 in.; BMI: 28.2; sv Pain 0/10; sv
--- NOTE | 2019-03-15 11:27 | EDPHYS ---
Physician Documentation [facility] Name: Veda Pratt Age: 28 yrs Sex: Female : 1990 Arrival Date: 03/15/2019 Time: 10:44 Bed 8 Private MD: ED Physician Tyron Hendricks HPI: 03/15 11:24 This 28 yrs old Female presents to ER via Ambulatory with complaints of Psych ma2 Problem. 11:24 The patient presents to the emergency department with anxiety. Onset: The ma2 symptoms/episode began/occurred gradually, 1 week(s) ago. Associated signs and symptoms: Pertinent negatives: anxiety, chills, hallucinations, paranoia, shortness of breath, suicide ideation. Severity of symptoms: At their worst the symptoms were very mild in the emergency department the symptoms are unchanged. Historical: - Allergies: 10:51 No Known Allergies; sv - Home Meds: 10:51 Risperdal Oral [Active]; sv - PMHx: 10:51 Anxiety; Headaches; Schizoeffect; sv - PSHx: 10:51 Tubal ligation; sv - Immunization history:: Adult Immunizations unknown. - Social history:: Patient/guardian denies using alcohol, street drugs, The patient lives with family, Smoking status: Patient/guardian denies using tobacco. - Family history:: not pertinent. - Ebola Screening: : No symptoms or risks identified at this time. - Hospitalizations: : No recent hospitalization is reported. ROS: 11:24 Constitutional: Negative for fever, chills, and weight loss. ma2 11:24 All other systems are negative. Exam: 11:24 Constitutional: This is a well developed, well nourished patient who is awake, alert, ma2 and in no acute distress. Chest/axilla: Normal chest wall appearance and motion. Nontender with no deformity. No lesions are appreciated. Cardiovascular: Regular rate and rhythm with a normal S1 and S2. No gallops, murmurs, or rubs. Normal PMI, no JVD. No pulse deficits. Respiratory: Lungs have equal breath sounds bilaterally, clear to auscultation and percussion. No rales, rhonchi or wheezes noted. No increased work of breathing, no retractions or nasal flaring. Abdomen/GI: Soft, non-tender, with normal bowel sounds. No distension or tympany. No guarding or rebound. No evidence of tenderness throughout. MS/ Extremity: Pulses equal, no cyanosis. Neurovascular intact. Full, normal range of motion. Neuro: Awake and alert, GCS 15, oriented to person, place, time, and situation. Cranial nerves II-XII grossly intact. Motor strength 5/5 in all extremities. Sensory grossly intact. Cerebellar exam normal. Normal gait. Vital Signs: 10:52 BP 139 / 105; Pulse 146; Resp 16; Temp 97.9; Pulse Ox 98% ; Weight 77.11 kg; Height 5 sv ft. 5 in. (165.10 cm); Pain 0/10; 11:37 BP 127 / 98; Pulse 115; Resp 18; Temp 98.0; Pulse Ox 99% on R/A; ph 10:52 Body Mass Index 28.29 (77.11 kg, 165.10 cm) sv MDM: 10:55 Patient medically screened. ma2 11:24 Differential diagnosis: psychosis secondary to non-compliance. Data reviewed: vital ma2 signs, nurses notes. Counseling: I had a detailed discussion with the patient and/or guardian regarding: the historical points, exam findings, and any diagnostic results supporting the discharge/admit diagnosis, the presence of at least one elevated blood pressure reading (>120/80) during this emergency department visit. Response to treatment: the patient's symptoms have markedly improved after treatment. Administered Medications: 11:45 Drug: Ativan 1 mg Route: PO; ph 11:53 Follow up: Response: No adverse reaction ph Disposition: 03/15/19 11:26 Discharged to Home. Impression: Anxiety disorder, unspecified. - Condition is Stable. - Discharge Instructions: Generalized Anxiety Disorder, Information About Deep Brain Stimulation. - Prescriptions for Ativan 1 mg Oral Tablet - take 1 tablet by ORAL route every 8 hours As needed; 10 tablet. - Medication Reconciliation Form, Thank You Letter, Antibiotic Education, Prescription Opioid Use form. - Follow up: Private Physician; When: Tomorrow; Reason: Continuance of care. Signatures: Opal Thompson RN RN Kristy Padilla RN RN Tyron Hendricks MD MD ma2 Corrections: (The following items were deleted from the chart) 11:45 11:26 03/15/2019 11:26 Discharged to Home. Impression: Anxiety disorder, unspecified. ph Condition is Stable. Forms are Medication Reconciliation Form, Thank You Letter, Antibiotic Education, Prescription Opioid Use. Follow up: Private Physician; When: Tomorrow; Reason: Continuance of care. ma2
[2019-03-15] MEDS ORDERED: LORAZEPAM 1 MG TABLET ONE (11:35)
[2019-03-15 11:53] VITALS: BP 127/98; TEMP 98; O2SAT 99
== END 2019-03-15 11:45 | disposition home or self-care (01) ==
LOC: ER 10:42
DX: F41.9 Anxiety disorder, unspecified (principal); F25.9 Schizoaffective disorder, unspecified
CPT/HCPCS: 99284

== ENCOUNTER 2020-08-04 05:12 | Emergency (ER) | payer SELFPAY ==
--- NOTE | 2020-08-04 06:17 | ER ---
Nurse's Notes [facility] Name: Veda Pratt Age: 30 yrs Sex: Female : 1990 Arrival Date: 08/04/2020 Time: 05:15 Bed 5 Private MD: Diagnosis: Anxiety disorder, unspecified Presentation: 08/04 05:18 Chief complaint: Patient states: My and I got into an argument over money and I jb4 became very anxious and am having trouble sleeping. I tried going to my mothers to talk but that didn't help. I took my Risperidone and Lorazepam, and it has helped a little, but I still feel wound up and cannot sleep. 05:18 Coronavirus screen: Client denies travel out of the [place] in the last 14 days. At this jb4 time, the client does not indicate any symptoms associated with coronavirus-19. Ebola Screen: No symptoms or risks identified at this time. Initial Sepsis Screen: Does the patient meet any 2 criteria? HR > 90 bpm. Yes Does the patient have a suspected source of infection? No. Patient's initial sepsis screen is negative. Risk Assessment: Do you want to hurt yourself or someone else? Patient reports no desire to harm self or others. Onset of symptoms was August 04, 2020. Transition of care: patient was not received from another setting of care. 05:18 Method Of Arrival: Ambulatory jb4 05:18 Acuity: BEKA 3 jb4 Historical: - Allergies: 05:39 No Known Allergies; jb4 - Home Meds: 05:39 Risperdal Oral [Active]; Lorazepam Oral [Active]; jb4 - PMHx: 05:39 Anxiety; Headaches; Schizoeffect; jb4 - PSHx: 05:39 Tubal ligation; ; jb4 - Immunization history:: Adult Immunizations up to date. - Social history:: Smoking status: Patient denies any tobacco usage or history of. Patient/guardian denies using alcohol, street drugs. - Family history:: not pertinent. - Hospitalizations: : No recent hospitalization is reported. Screenin:18 Abuse screen: Denies threats or abuse. Nutritional screening: No deficits noted. jb4 Tuberculosis screening: No symptoms or risk factors identified. Fall Risk None identified. Assessment: 05:18 General: Appears in no apparent distress. comfortable, Behavior is calm, cooperative, jb4 appropriate for age. Pain: Denies pain. Neuro: Level of Consciousness is awake, alert, obeys commands, Oriented to person, place, time, situation. Cardiovascular: Patient's skin is warm and dry. Respiratory: Airway is patent Respiratory effort is even, unlabored, Respiratory pattern is regular, symmetrical. GI: No signs and/or symptoms were reported involving the gastrointestinal system. : No signs and/or symptoms were reported regarding the genitourinary system. EENT: No signs and/or symptoms were reported regarding the EENT system. Derm: Skin is intact, Skin is pink, warm \T\ dry. Musculoskeletal: Circulation, motion, and sensation intact. Range of motion: intact in all extremities. 06:28 Reassessment: Patient appears in no apparent distress at this time. Patient and/or jb4 family updated on plan of care and expected duration. Pain level reassessed. Patient is alert, oriented x 3, equal unlabored respirations, skin warm/dry/pink. Vital Signs: 05:18 BP 167 / 81; Pulse 133; Resp 20; Temp 98.3(TE); Pulse Ox 98% on R/A; Weight 102.06 kg jb4 (R); Height 5 ft. 5 in. (165.10 cm) (R); Pain 0/10; 06:15 BP 139 / 85; Pulse 109; Resp 16; Pulse Ox 100% on R/A; jb4 05:18 Body Mass Index 37.44 (102.06 kg, 165.10 cm) jb4 ED Course: 05:15 Patient arrived in ED. bp1 05:17 Irvin Rodriguez MD is Attending Physician. rn 05:18 Arm band placed on right wrist. jb4 05:18 Patient has correct armband on for positive identification. Bed in low position. Call jb4 light in reach. Side rails up X 1. Pulse ox on. NIBP on. 05:34 Richard Stoner, ONEYDA is Primary Nurse. jb4 05:38 Triage completed. jb4 06:15 No provider procedures requiring assistance completed. Patient did not have IV access jb4 during this emergency room visit. Administered Medications: No medications were administered Outcome: 06:16 Discharge ordered by . rn 06:29 Discharged to home ambulatory. jb4 06:29 Condition: stable 06:29 Discharge instructions given to patient, Instructed on discharge instructions, follow up and referral plans. Demonstrated understanding of instructions, follow-up care. 06:29 Patient left the ED. jb4 Signatures: Irvin Rodriguez MD MD rn Bryson, James, RN RN jb4 Barbie Elizondo
--- NOTE | 2020-08-04 06:17 | EDPHYS ---
Physician Documentation [facility] Name: Veda Pratt Age: 30 yrs Sex: Female : 1990 Arrival Date: 08/04/2020 Time: 05:15 Bed 5 Private MD: ED Physician Irvin Rodriguez HPI: 08/04 06:04 This 30 yrs old Female presents to ER via Ambulatory with complaints of rn Anxiety, Trouble Sleeping. 06:04 The patient presents to the emergency department with anxiety. Onset: The rn symptoms/episode began/occurred yesterday. Associated signs and symptoms: Pertinent positives; anxiety, Pertinent negatives: chest pain, delusions, fever, hallucinations, shortness of breath, substance abuse, suicide ideation, tremor, vomiting. Severity of symptoms: At their worst the symptoms were moderate in the emergency department the symptoms have improved. The patient has experienced similar episodes in the past. The patient has not recently seen a physician. Reports having anxiety attacks lately and having trouble sleeping. Took her lorazepam and feels much better. NO chest pain or sob. Reports here to see if she can have medication to sleep, but drove herself here. . Historical: - Allergies: 05:39 No Known Allergies; jb4 - Home Meds: 05:39 Risperdal Oral [Active]; Lorazepam Oral [Active]; jb4 - PMHx: 05:39 Anxiety; Headaches; Schizoeffect; jb4 - PSHx: 05:39 Tubal ligation; ; jb4 - Immunization history:: Adult Immunizations up to date. - Social history:: Smoking status: Patient denies any tobacco usage or history of. Patient/guardian denies using alcohol, street drugs. - Family history:: not pertinent. - Hospitalizations: : No recent hospitalization is reported. ROS: 06:04 Constitutional: Negative for fever, chills, and weight loss, Eyes: Negative for injury, rn pain, redness, and discharge, Neck: Negative for injury, pain, and swelling, Cardiovascular: Negative for chest pain, and edema, Respiratory: Negative for shortness of breath, cough, wheezing, and pleuritic chest pain, Abdomen/GI: Negative for abdominal pain, nausea, vomiting, diarrhea, and constipation, : Negative for injury, bleeding, discharge, and swelling, MS/Extremity: Negative for injury and deformity, Skin: Negative for injury, rash, and discoloration, Neuro: Negative for headache, weakness, numbness, tingling, and seizure. Exam: 06:04 Constitutional: This is a well developed, well nourished patient who is awake, alert, rn and in no acute distress. Seems a little anxious. Head/Face: Normocephalic, atraumatic. Eyes: Periorbital areas with no swelling, redness, or edema. Cardiovascular: Tachycardic, regular Respiratory: No increased work of breathing, no retractions or nasal flaring. Skin: Warm, dry with normal turgor. Normal color with no rashes, no lesions, and no evidence of cellulitis. MS/ Extremity: Pulses equal, no cyanosis. Neurovascular intact. Full, normal range of motion. Equal circumference. Neuro: Awake and alert, GCS 15, oriented to person, place, time, and situation. Cranial nerves II-XII grossly intact. Motor strength 5/5 in all extremities. Sensory grossly intact. Cerebellar exam normal. Vital Signs: 05:18 BP 167 / 81; Pulse 133; Resp 20; Temp 98.3(TE); Pulse Ox 98% on R/A; Weight 102.06 kg jb4 (R); Height 5 ft. 5 in. (165.10 cm) (R); Pain 0/10; 06:15 BP 139 / 85; Pulse 109; Resp 16; Pulse Ox 100% on R/A; jb4 05:18 Body Mass Index 37.44 (102.06 kg, 165.10 cm) jb4 MDM: 05:17 Patient medically screened. rn 06:04 Differential diagnosis: anxiety. Data reviewed: vital signs, nurses notes, and as a rn result, I will discharge patient. Counseling: I had a detailed discussion with the patient and/or guardian regarding: the historical points, exam findings, and any diagnostic results supporting the discharge/admit diagnosis, the need for outpatient follow up, to return to the emergency department if symptoms worsen or persist or if there are any questions or concerns that arise at home. Response to treatment: the patient's symptoms have markedly improved after treatment, and as a result, I will discharge patient. Special discussion: I discussed with the patient/guardian in detail that at this point there is no indication for admission to the hospital. It is understood, however, that if the symptoms persist or worsen the patient needs to return immediately for re-evaluation. Special discussion: Based on the history and exam findings, there is no indication for further emergent testing or inpatient evaluation. I discussed with the patient/guardian the need to see the psychiatrist for further evaluation of the symptoms. ED course: Pt improving since took ativan at home, drove herself here, will dc home and told her to take an additional ativan at home. recommend OTC sleep meds because hasn't tried before and wouldn't jumpt to prescription strength sleep aids. . Administered Medications: No medications were administered Disposition: 08/04/20 06:16 Discharged to Home. Impression: Anxiety disorder, unspecified. - Condition is Stable. - Discharge Instructions: Panic Attacks, Generalized Anxiety Disorder. - Medication Reconciliation Form, Thank You Letter, Antibiotic Education, Prescription Opioid Use form. - Follow up: Private Physician; When: As needed; Reason: Recheck today's complaints, Re-evaluation by your physician. - Problem is new. - Symptoms have improved. Signatures: Irvin Rodriguez MD MD rn Bryson, James, RN RN jb4 Corrections: (The following items were deleted from the chart) 06:29 06:16 08/04/2020 06:16 Discharged to Home. Impression: Anxiety disorder, unspecified. jb4 Condition is Stable. Forms are Medication Reconciliation Form, Thank You Letter, Antibiotic Education, Prescription Opioid Use. Follow up: Private Physician; When: As needed; Reason: Recheck today's complaints, Re-evaluation by your physician. Problem is new. Symptoms have improved. rn
[2020-08-04 06:34] VITALS: TEMP 98.3
[2020-08-04 06:35] VITALS: BP 139/85; O2SAT 100
== END 2020-08-04 06:29 | disposition home or self-care (01) ==
LOC: ER 05:12
DX: F41.9 Anxiety disorder, unspecified (principal); F25.9 Schizoaffective disorder, unspecified
CPT/HCPCS: 99283

== ENCOUNTER 2021-11-02 18:41 | Emergency (ER) | payer SELFPAY ==
--- NOTE | 2021-11-02 19:43 | ER ---
Nurse's Notes [facility] Name: Veda Pratt Age: 31 yrs Sex: Female : 1990 Arrival Date: 11/02/2021 Time: 18:43 Bed Waiting Private MD: Diagnosis: Allergy, unspecified, initial encounter Presentation: 11/02 19:35 Chief complaint: Patient states: "I was weedeating my sisters yard and I forgot that I tw5 had saw poison Celsa. I was exposed on the 7th ". Coronavirus screen:. Ebola Screen: Patient negative for fever greater than or equal to 101.5 degrees Fahrenheit, and additional compatible Ebola Virus Disease symptoms Patient denies exposure to infectious person. Patient denies travel to an Ebola-affected area in the 21 days before illness onset. Initial Sepsis Screen: Does the patient meet any 2 criteria? No. Patient's initial sepsis screen is negative. Does the patient have a suspected source of infection? No. Patient's initial sepsis screen is negative. Risk Assessment: Do you want to hurt yourself or someone else? Patient reports no desire to harm self or others. Onset of symptoms was October 28, 2021. 19:35 Method Of Arrival: Ambulatory tw5 19:35 Acuity: BEKA 5 tw5 Triage Assessment: 19:37 General: Appears in no apparent distress. Behavior is calm, cooperative, appropriate tw5 for age. Pain: Complains of pain in "all over." Pain currently is 7 out of 10 on a pain scale. 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 - Social history:: Smoking status: Patient denies any tobacco usage or history of. Screenin:38 Abuse screen: Denies threats or abuse. Denies injuries from another. Nutritional tw5 screening: No deficits noted. Tuberculosis screening: No symptoms or risk factors identified. Fall Risk None identified. Assessment: 19:38 General: Appears in no apparent distress. Behavior is calm. Derm: Rash noted that is tw5 itchy, red, raised. 19:45 Reassessment: Patient appears in no apparent distress at this time. No changes from tw5 previously documented assessment. Patient and/or family updated on plan of care and expected duration. Pain level reassessed. Vital Signs: 19:35 BP 136 / 96; Pulse 91; Resp 18; Temp 98.1; Pulse Ox 98% on R/A; Weight 90.72 kg; Height tw5 5 ft. 5 in. (165.10 cm); Pain 7/10; 19:35 Body Mass Index 33.28 (90.72 kg, 165.10 cm) tw5 ED Course: 18:43 Patient arrived in ED. rg4 19:14 Jose Luis Torres PA is PHCP. cp 19:14 Juan Ospina MD is Attending Physician. cp 19:37 Triage completed. tw5 19:37 Arm band placed on. tw5 19:38 Patient has correct armband on for positive identification. tw5 19:38 No provider procedures requiring assistance completed. Patient did not have IV access tw5 during this emergency room visit. Administered Medications: 19:43 Drug: SOLU-Medrol (methylPREDNISolone sodium succinate) 125 mg Route: IM; Site: right tw5 vastus lateralis; 19:44 Follow up: Response: No adverse reaction; Medication administered at discharge. tw5 Medication: 19:38 VIS not applicable for this client. tw5 Outcome: 19:42 Discharge ordered by MD. cp 19:45 Discharged to home ambulatory. tw5 19:45 Condition: good 19:45 Discharge instructions given to patient, Instructed on discharge instructions, follow up and referral plans. Demonstrated understanding of instructions, follow-up care, medications, Prescriptions given X 2. 19:46 Patient left the ED. tw5 Signatures: Jose Luis Torres PA PA cp Garcia, Rubi rg4 Aubrie Sexton tw5
--- NOTE | 2021-11-02 19:43 | EDPHYS ---
Physician Documentation [facility] Name: Veda Pratt Age: 31 yrs Sex: Female : 1990 Arrival Date: 11/02/2021 Time: 18:43 Bed Waiting Private MD: ED Physician Juan Ospina HPI: 11/02 19:40 This 31 yrs old Female presents to ER via Ambulatory with complaints of Poison Celsa. cp 19:40 The patient's rash thought to be caused by Contact allergy. The rash is located on the cp body diffusely. 19:40 The rash can be described as itching, burning. Onset: The symptoms/episode cp began/occurred 5 day(s) ago. Associated signs and symptoms: Pertinent positives: burning sensation, itching, Pertinent negatives: difficulty breathing, fever, Pain swelling of lips, swelling of throat, swelling of tongue, vomiting, wheezing. Severity of symptoms: in the emergency department the symptoms are worse moderately. Treatment given at home: Benadryl, OTC lotion/cream. 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 - Social history:: Smoking status: Patient denies any tobacco usage or history of. ROS: 19:40 Eyes: Negative for injury, pain, redness, and discharge. cp 19:40 Constitutional: Negative for body aches, chills, fever, poor PO intake. 19:40 ENT: Negative for drainage from ear(s), ear pain, sore throat, difficulty swallowing, difficulty handling secretions. 19:40 Respiratory: Negative for cough, shortness of breath, wheezing. 19:40 Abdomen/GI: Negative for abdominal pain, nausea, vomiting, and diarrhea. 19:40 Skin: Positive for rash, diffusely. 19:40 Neuro: Negative for altered mental status, headache, weakness. 19:40 All other systems are negative. Exam: 19:40 Head/Face: Normocephalic, atraumatic. cp 19:40 Constitutional: The patient appears in no acute distress, alert, awake, non-toxic, well developed, well nourished. 19:40 Eyes: Periorbital structures: appear normal, Conjunctiva: normal, no exudate, no injection, Sclera: no appreciated abnormality, Lids and lashes: appear normal, bilaterally. 19:40 Cardiovascular: Rate: normal, Rhythm: regular. 19:40 Respiratory: the patient does not display signs of respiratory distress, Respirations: normal, no use of accessory muscles, no retractions, labored breathing, is not present, Breath sounds: are clear throughout, no decreased breath sounds, no stridor, no wheezing. 19:40 Skin: cellulitis, is not appreciated, rash can be described as urticarial, hives, and is diffusely located. 19:40 Neuro: Orientation: to person, place \T\ time. Mentation: is normal. Vital Signs: 19:35 BP 136 / 96; Pulse 91; Resp 18; Temp 98.1; Pulse Ox 98% on R/A; Weight 90.72 kg; Height tw5 5 ft. 5 in. (165.10 cm); Pain 7/10; 19:35 Body Mass Index 33.28 (90.72 kg, 165.10 cm) tw5 MDM: 19:42 Patient medically screened. cp 19:42 Differential diagnosis: anaphylaxis, contact dermatitis, angioedema, cellulitis. cp 19:42 Data reviewed: vital signs, nurses notes. Counseling: I had a detailed discussion with cp the patient and/or guardian regarding: the historical points, exam findings, and any diagnostic results supporting the discharge/admit diagnosis, to return to the emergency department if symptoms worsen or persist or if there are any questions or concerns that arise at home. Response to treatment: There is no appreciated change of the patient's symptoms at this time, and as a result, I will discharge patient. Administered Medications: 19:43 Drug: SOLU-Medrol (methylPREDNISolone sodium succinate) 125 mg Route: IM; Site: right tw5 vastus lateralis; 19:44 Follow up: Response: No adverse reaction; Medication administered at discharge. tw5 Disposition Summary: 11/02/21 19:42 Discharge Ordered Location: Home cp Problem: new cp Symptoms: are unchanged cp Condition: Stable cp Diagnosis - Allergy, unspecified, initial encounter cp Followup: cp - With: Private Physician - When: 2 - 3 days - Reason: Worsening of condition Discharge Instructions: - Discharge Summary Sheet cp - Hives cp - Poison Celsa Dermatitis cp Forms: - Medication Reconciliation Form cp - Thank You Letter cp - Antibiotic Education cp - Prescription Opioid Use cp Prescriptions: - Prednisone 20 mg Oral Tablet - take 2 tablets by ORAL route once daily for 5 days then take 1 tablet daily for cp 3 days, them 1/2 tablet daily for 2 days; 10 tablet; Refills: 0, Product Selection Permitted - Pepcid 20 mg Oral Tablet - take 1 tablet by ORAL route every 12 hours for 10 days; 20 tablet; Refills: 0, cp Product Selection Permitted Addendum: 11/04/2021 14:06 Attestation: The patient's history, exam findings, diagnostics, and a summary of any j r11 interventions or procedures was reviewed in detail with Jose Luis MCDONOUGH. Signatures: Jose Luis Torres PA PA cp Wood, Tiffany tw5 Juan Ospina MD MD jr11
[2021-11-02] MEDS ORDERED: METHYLPREDNISOLONE 125 MG INJ ONE (19:49)
[2021-11-02 19:57] VITALS: BP 136/96; TEMP 98.1; O2SAT 98
== END 2021-11-02 19:46 | disposition home or self-care (01) ==
LOC: ER 18:41
DX: R21 Rash and other nonspecific skin eruption (principal); F25.9 Schizoaffective disorder, unspecified
CPT/HCPCS: 96372; 99283; J2930

== ENCOUNTER 2024-12-12 18:10 | Emergency (ER) | payer SELFPAY ==
[2024-12-12] MEDS ORDERED: DIAZEPAM 5 MG TABLET ONE (19:00)
[2024-12-12 19:37] LABS: Absolute Lymphocytes (CBC) 1.7 K/uL (0.7-4.9); Hematocrit 40.2 % (36.0-45.0); Hemoglobin 13.8 g/dL (12.0-15.0); MCH 29.7 pg (27.0-35.0); MCHC 34.3 g/dL (32.0-36.0); MCV 86.6 fL (80-100); MPV 7.8 fL (7.6-11.3); Nucleated RBC Absolute Count 0.0 (0-0); Nucleated Red Blood Cells % 0.1 % (0-0); RBC Red Blood Cell Count 4.64 M/uL (3.86-4.86); White Blood Count 12.00 thou/uL (4.3-10.9)
--- NOTE | 2024-12-12 19:38 | RAD REPORT ---
EXAM: Chest Single View HISTORY: 34 years Female CHEST PAIN COMPARISON: No prior exams FINDINGS: LUNGS/PLEURA: The lungs are clear. No pleural effusions or pneumothorax. No pulmonary edema. CARDIAC/MEDIASTINUM: The cardiac silhouette is within normal limits. UPPER ABDOMEN: No significant abnormality. BONES: No acute abnormality. Mild scoliosis. LINES/TUBES/OTHER: N/A IMPRESSION: No evidence of acute cardiopulmonary disease.
[2024-12-12 19:42] LABS: PT Prothrombin Time 13.1 SECONDS (10-13.0); Protime INR 1.16
[2024-12-12 19:56] LABS: ALT/SGPT 21 U/L (13-56); AST/SGOT 11 U/L (15-37); Albumin 3.9 g/dL (3.4-5.0); Albumin/Globulin Ratio 0.9 (1.1-1.8); Alkaline Phosphatase 108 U/L (45-117); Anion Gap 9.9 mEq/L (5.0-15.0); BUN Blood Urea Nitrogen 10 mg/dL (7-18); Globulin 4.4 g/dL (2.3-3.5); Glucose Level 121 mg/dL (74-106); Magnesium 2.2 mg/dL (1.6-2.4); NT PRO-BNP 11 pg/mL (<125); Potassium 3.9 mEq/L (3.5-5.1)
[2024-12-12 19:59] LABS: Bilirubin Indirect, Calculated 0.1 mg/dL (0.2-0.8); Troponin High Sensitivity < 3.0 pg/mL (<58.9)
--- NOTE | 2024-12-12 20:03 | ER ---
Nurse's Notes [facility] Name: Veda Pratt Age: 34 yrs Sex: Female : 1990 Arrival Date: 12/12/2024 Time: 18:10 Bed 26 Private MD: Diagnosis: Anxiety disorder, unspecified;Elevated blood-pressure reading, without diagnosis of hypertension Presentation: 12/12 18:39 Chief complaint: Feeling anxious and heart racing since this morning. Coronavirus hb screen: At this time, the client does not indicate any symptoms associated with coronavirus-19. Ebola Screen: No symptoms or risks identified at this time. Initial Sepsis Screen: Does the patient meet any 2 criteria? No. Patient's initial sepsis screen is negative. Does the patient have a suspected source of infection? No. Patient's initial sepsis screen is negative. Risk Assessment: Do you want to hurt yourself or someone else? Patient reports no desire to harm self or others. Onset of symptoms was December 12, 2024. 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 - Infectious Disease History:: Denies. - Social history:: Smoking status: unknown. Screenin:00 [facility] ED Fall Risk Assessment (Adult) History of falling in the last 3 months, kj2 including since admission No falls in past 3 months (0 pts) Confusion or Disorientation No (0 pts) Intoxicated or Sedated No (0 pts) Impaired Gait No (0 pts) Mobility Assist Device Used No (0 pt) Altered Elimination No (0 pt) Score/Fall Risk Level 0 - 2 = Low Risk Maintained a safe environment, Hourly rounding (assess needs \T\ fall precautionary measures) done. Abuse screen: Denies threats or abuse. Denies injuries from another. Nutritional screening: No deficits noted. Tuberculosis screening: No symptoms or risk factors identified. Assessment: 19:00 General: Appears in no apparent distress. Behavior is cooperative. Pain:. Neuro: Level kj2 of Consciousness is awake, alert, Oriented to person, place, time, situation. Cardiovascular: Patient's skin is warm and dry. Respiratory: Airway is patent Respiratory effort is unlabored. GI: No signs and/or symptoms were reported involving the gastrointestinal system. : No signs and/or symptoms were reported regarding the genitourinary system. 19:49 Reassessment: Patient appears in no apparent distress at this time. Patient and/or kj2 family updated on plan of care and expected duration. Pain level reassessed. Patient is alert, oriented x 3, equal unlabored respirations, skin warm/dry/pink. 20:30 Reassessment: Patient appears in no apparent distress at this time. Patient and/or kj2 family updated on plan of care and expected duration. Pain level reassessed. Patient is alert, oriented x 3, equal unlabored respirations, skin warm/dry/pink. Vital Signs: 18:39 BP 178 / 106; Pulse 108; Resp 18; Temp 97.5(O); Pain 0/10; hb 19:49 BP 143 / 109; Pulse 95; Resp 18; Pulse Ox 100% on R/A; kj2 20:03 BP 124 / 97; sb4 20:30 BP 136 / 95; Pulse 96; Resp 20; Temp 98; Pulse Ox 100% on R/A; kj2 18:39 Pain Scale: Adult hb ED Course: 18:11 Patient arrived in ED. ts1 18:18 Christen Aleman PA-C is PHCP. sb4 18:18 Irvin Rodriguez MD is Attending Physician. sb4 18:40 Triage completed. hb 18:58 Gabi Mason, RN is Primary Nurse. kj2 19:00 Patient has correct armband on for positive identification. Bed in low position. Call kj2 light in reach. Adult w/ patient. Provided Education on: call light. 19:29 Initial lab(s) drawn, by me, sent to lab. EKG done, by ED staff, reviewed by Christen Aleman PA-C. Inserted saline lock: 20 gauge in right antecubital area, using aseptic technique. Blood collected. Flushed with 10 mL NS. 19:30 XRAY Chest (1 view) In Process Unspecified. EDMS 20:03 Kaylan Whiteside DO is Referral Physician. sb4 20:31 No provider procedures requiring assistance completed. IV discontinued, intact, kj2 bleeding controlled, No redness/swelling at site. Pressure dressing applied. Administered Medications: 19:03 Drug: Diazepam PO 5 mg PO once Route: PO; kj2 20:01 Follow up: Response: No adverse reaction kj2 20:00 Drug: cloNIDine PO 0.1 mg PO once Route: PO; kj2 20:32 Follow up: Response: No adverse reaction; Blood pressure is lowered kj2 Medication: 19:48 VIS not applicable for this client. kj2 Outcome: 20:03 Discharge ordered by . ofelia 20:32 Discharged to home ambulatory, kj2 20:32 Condition: stable 20:32 Discharge instructions given to patient, family, Instructed on discharge instructions, follow up and referral plans. Demonstrated understanding of instructions, follow-up care, 20:43 Patient left the ED. kj2 Signatures: Dispatcher [employer] EDMS Shaista Kumar, RN RN Christen Sanchez, PA-C PA-C candy4 Aure Dobson PAS PAS ts1 Gabi Mason RN RN kj2 Gareth Rea rk3
--- NOTE | 2024-12-12 20:03 | EDPHYS ---
Physician Documentation [facility] Name: Veda Pratt Age: 34 yrs Sex: Female : 1990 Arrival Date: 12/12/2024 Time: 18:10 Bed 26 Private MD: ED Physician Irvin Rodriguez HPI: 12/12 18:47 This 34 yrs old Female presents to ER via Ambulatory with complaints of Anxiety, Blood sb4 Pressure Problem. 18:47 Patient believes that she has been experiencing a bad panic attack over the past day. sb4 She states she feels very anxious, on edge, nervous, has not been able to sleep. She states that her blood pressure has been elevated and has no history of high blood pressure. She states that she has not been formally diagnosed with anxiety nor did she prescribed any medications for it. Also endorses some palpitations. 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 - Infectious Disease History:: Denies. - Social history:: Smoking status: unknown. ROS: 18:48 Constitutional: Negative for fever, chills, and weight loss, sb4 18:48 Cardiovascular: Positive for palpitations, 18:48 Abdomen/GI: Positive for nausea, 18:48 Psych: Positive for anxiety, 18:48 Psych: Positive for insomnia, 18:48 All other systems are negative, Exam: 18:48 Head/Face: Normocephalic, atraumatic. Eyes: Extra-ocular motions intact. Periorbital sb4 areas with no swelling, redness, or edema. ENT: Mucous membranes moist. Respiratory: No increased work of breathing, no retractions or nasal flaring. Abdomen/GI: Soft, non-tender, no distension. Skin: Warm, dry with normal turgor. Normal color with no rashes, no lesions, and no evidence of cellulitis. 18:48 Constitutional: The patient appears alert, awake, anxious, 18:48 Cardiovascular: Rate: tachycardic, Rhythm: regular, Vital Signs: 18:39 BP 178 / 106; Pulse 108; Resp 18; Temp 97.5(O); Pain 0/10; hb 19:49 BP 143 / 109; Pulse 95; Resp 18; Pulse Ox 100% on R/A; kj2 20:03 BP 124 / 97; sb4 20:30 BP 136 / 95; Pulse 96; Resp 20; Temp 98; Pulse Ox 100% on R/A; kj2 18:39 Pain Scale: Adult hb MDM: 18:18 Medical Screening Exam initiated sb4 19:55 Differential diagnosis: anxiety, HTN, arrhythmia, dehydration, electrolyte abnormality. sb4 Data reviewed: vital signs, nurses notes, lab test result(s), EKG, radiologic studies, and as a result, I will discharge patient. Counseling: I had a detailed discussion with the patient and/or guardian regarding the historical points, exam findings, and any diagnostic results supporting the discharge/admit diagnosis, the presence of at least one elevated blood pressure reading (>120/80) during this emergency department visit, lab results, radiology results, the need for outpatient follow up, for definitive care, to return to the emergency department if symptoms worsen or persist or if there are any questions or concerns that arise at home. 12/12 18:40 Order name: Basic Metabolic Panel; Complete Time: 20:00 sb4 12/12 18:40 Order name: CBC with Diff; Complete Time: 19:42 sb4 12/12 18:40 Order name: LFT's; Complete Time: 20:00 sb4 12/12 18:40 Order name: Magnesium; Complete Time: 20:00 sb4 12/12 18:40 Order name: NT PRO-BNP; Complete Time: 20:00 sb4 12/12 18:40 Order name: PT-INR; Complete Time: 19:43 sb4 12/12 18:40 Order name: Troponin HS; Complete Time: 20:00 sb4 12/12 18:40 Order name: XRAY Chest (1 view); Complete Time: 19:42 sb4 12/12 18:40 Order name: Cardiac monitoring; Complete Time: 19:30 sb4 12/12 18:40 Order name: EKG - Nurse/Tech; Complete Time: 19:30 sb4 12/12 18:40 Order name: IV Saline Lock; Complete Time: 19:30 sb4 12/12 18:40 Order name: Labs collected and sent; Complete Time: 19:30 sb4 12/12 18:40 Order name: O2 Per Protocol; Complete Time: 19:30 sb4 12/12 18:40 Order name: O2 Sat Monitoring; Complete Time: 19:30 sb4 EC:23 Rate is 99 beats/min. Rhythm is regular, Normal Sinus Rhythm. IA interval is normal at sb4 134 msec. QRS interval is normal at 76 msec. QT interval is normal at 340 msec. No Q waves. T waves are Normal. No ST changes noted. Clinical impression: Normal ECG. Interpreted by me. Reviewed by me. Administered Medications: 19:03 Drug: Diazepam PO 5 mg PO once Route: PO; kj2 20:01 Follow up: Response: No adverse reaction kj2 20:00 Drug: cloNIDine PO 0.1 mg PO once Route: PO; kj2 20:32 Follow up: Response: No adverse reaction; Blood pressure is lowered kj2 Disposition: 12/13 07:03 Co-signature as Attending Physician, Irvin Rodriguez MD I reviewed the patient's care rn provided by the Advanced Practice Provider and agree with the diagnosis and treatment plan. Disposition Summary: 12/12/24 20:03 Discharge Ordered Notes: Location: Home sb4 Problem: new sb4 Symptoms: have improved sb4 Condition: Stable sb4 Diagnosis - Anxiety disorder, unspecified sb4 - Elevated blood-pressure reading, without diagnosis of hypertension sb4 Followup: sb4 - With: Emergency Department - When: As needed - Reason: Trouble breathing, Worsening of condition Followup: sb4 - With: Stevo, Kaylan, DO - When: 1 week - Reason: Recheck today's complaints, Re-evaluation by your physician Discharge Instructions: - Discharge Summary Sheet sb4 - How to Take Your Blood Pressure, Pjgo-[id number]-[id number] sb4 - Panic Attack, Oixg-nz-Knvd sb4 - Managing Anxiety, Adult sb4 Forms: - Patient Portal Instructions sb4 - Leadership Thank You Letter sb4 Prescriptions: - Hydroxyzine HCl 25 mg Oral Tablet - take 1 tablet ORAL route every 6 hours As needed; 12 tablet; Refills: 0, sb4 Product Selection Permitted Signatures: Dispatcher [employer] EDMS Irvin Rodriguez MD MD rn Baxter, Heather, RN RN hb Brown, Sophia, PA-C PA-C sb4 Gabi Mason RN RN kj2 Corrections: (The following items were deleted from the chart) 12/12 18:41 18:41 BASIC METABOLIC PANEL+C.LAB.BRZ ordered. EDMS EDMS 18:41 18:41 CBC+H.LAB.BRZ ordered. EDMS EDMS 18:41 18:41 HEPATIC FUNCTION+C.LAB.BRZ ordered. EDMS EDMS 18:41 18:41 MAGNESIUM+C.LAB.BRZ ordered. EDMS EDMS 18:41 18:41 PROBNP+C.LAB.BRZ ordered. EDMS EDMS 18:41 18:41 PROTIME (+INR)+COAG.LAB.BRZ ordered. EDMS EDMS 18:41 18:41 Troponin High Sensitivity+C.LAB.BRZ ordered. EDMS EDMS 18:41 18:41 Chest Single View+RAD.RAD.BRZ ordered. EDMS EDMS
[2024-12-12 21:28] VITALS: O2SAT 100
[2024-12-12 21:30] VITALS: BP 136/95; TEMP 98
== END 2024-12-12 20:43 | disposition home or self-care (01) ==
LOC: ER 18:10
DX: F41.9 Anxiety disorder, unspecified (principal); R03.0 Elevated blood-pressure reading, without diagnosis of hypertension
CPT/HCPCS: 36415; 71045; 80048; 80076; 83735; 83880; 84484; 85025; 85610; 93005; 99284

== ENCOUNTER 2024-12-16 18:36 | Emergency (ER) | payer SELFPAY ==
[2024-12-16] MEDS ORDERED: NA CHLORIDE 0.9% 1,000 ML ONE (19:49)
[2024-12-16 20:02] LABS: Absolute Lymphocytes (CBC) 2.9 K/uL (0.7-4.9); Hematocrit 40.9 % (36.0-45.0); Hemoglobin 13.8 g/dL (12.0-15.0); MCH 29.3 pg (27.0-35.0); MCHC 33.8 g/dL (32.0-36.0); MCV 86.6 fL (80-100); MPV 7.9 fL (7.6-11.3); Nucleated RBC Absolute Count 0.0 (0-0); Nucleated Red Blood Cells % 0.0 % (0-0); RBC Red Blood Cell Count 4.73 M/uL (3.86-4.86); White Blood Count 13.50 thou/uL (4.3-10.9)
[2024-12-16 20:06] LABS: Sqamous Epithelial <5 /HPF (None Seen); Urine Culture Reflex Order NOT NEEDED; Urine Microscopic Reflex YN ORDER UMIC
[2024-12-16 20:22] LABS: Influenza A Ag Negative; Influenza B Ag Negative; SARS-CoV-2 Antigen Rapid Res Negative (Negative)
[2024-12-16 20:24] LABS: ALT/SGPT 19 U/L (13-56); Albumin 4.0 g/dL (3.4-5.0); Albumin/Globulin Ratio 1.0 (1.1-1.8); Alkaline Phosphatase 112 U/L (45-117); Anion Gap 11.5 mEq/L (5.0-15.0); BUN Blood Urea Nitrogen 10 mg/dL (7-18); Globulin 4.1 g/dL (2.3-3.5); Glucose Level 152 mg/dL (74-106); Lipase 28 U/L (13-75); Potassium 3.5 mEq/L (3.5-5.1)
[2024-12-16 20:32] LABS: AST/SGOT < 10 U/L (15-37)
--- NOTE | 2024-12-16 22:59 | ER ---
Nurse's Notes [facility] Name: Veda Pratt Age: 34 yrs Sex: Female : 1990 Arrival Date: 12/16/2024 Time: 18:36 Bed 2 Private MD: Diagnosis: Other malaise;Acute pharyngitis, unspecified Presentation: 12/16 19:12 Chief complaint: Patient states: c/o sore throat, loss of smell, rapid HR with some me1 chest pain, cough, insomnia, body aches, fever, chills, decreased appetite for about a week. Pain 8/10. Coronavirus screen: Vaccine status: Patient reports being unvaccinated. Ebola Screen: No symptoms or risks identified at this time. Initial Sepsis Screen: Does the patient meet any 2 criteria? HR > 90 bpm. Does the patient have a suspected source of infection? No. Patient's initial sepsis screen is negative. Risk Assessment: Do you want to hurt yourself or someone else? Patient reports no desire to harm self or others. Onset of symptoms was December 09, 2024. 19:12 Method Of Arrival: Ambulatory [facility] [place] 19:12 Acuity: BEKA 3 me1 Triage Assessment: 19:15 General: Appears ill, well groomed, well developed, well nourished, Behavior is calm, me1 cooperative, appropriate for age. Pain: Complains of pain in throat Pain does not radiate. Pain currently is 8 out of 10 on a pain scale. Quality of pain is described as burning, Pain began about a week ago Is continuous. EENT: Reports pain when swallowing. Neuro: Level of Consciousness is awake, alert, obeys commands, Oriented to person, place, time, situation, Appropriate for age. Cardiovascular: Patient's skin is warm and dry. Respiratory: Airway is patent Trachea midline Respiratory effort is even, unlabored, Respiratory pattern is regular, symmetrical. GI: Reports anorexia. : No signs and/or symptoms were reported regarding the genitourinary system. Derm: Skin is intact, is healthy with good turgor, Skin is normal. Musculoskeletal: Circulation, motion, and sensation intact. Range of motion: intact in all extremities. MANAGER CARD: 19:14 LMP 11/20/2024, unknown me1 Historical: - Allergies: 19:14 No Known Allergies; me1 - PMHx: 19:14 Anxiety; Headaches; Schizoeffect; me1 - PSHx: 19:14 tubal ligation; me1 - Immunization history:: Adult Immunizations up to date. - Infectious Disease History:: Denies. - Social history:: Smoking status: Patient denies any tobacco usage or history of. Screenin:55 [facility] ED Fall Risk Assessment (Adult) History of falling in the last 3 months, bm8 including since admission No falls in past 3 months (0 pts) Confusion or Disorientation No (0 pts) Intoxicated or Sedated No (0 pts) Impaired Gait No (0 pts) Mobility Assist Device Used No (0 pt) Altered Elimination No (0 pt) Score/Fall Risk Level 0 - 2 = Low Risk Oriented to surroundings, Maintained a safe environment, Educated pt \T\ family on fall prevention, incl call for assistance when getting out of bed, Assessed \T\ reinforced patient's understanding of fall precautions, Hourly rounding (assess needs \T\ fall precautionary measures) done, Used ambulatory aids as needed (educated on \T\ assisted with), Used gait belt as appropriate. Abuse screen: Denies threats or abuse. Nutritional screening: No deficits noted. Tuberculosis screening: No symptoms or risk factors identified. Assessment: 19:55 General: Appears in no apparent distress. comfortable, Behavior is calm, cooperative, bm8 appropriate for age. Pain: Complains of pain in throat Pain currently is 7 out of 10 on a pain scale. Quality of pain is described as burning, aching. Neuro: No deficits noted. Level of Consciousness is awake, alert, obeys commands, Oriented to person, place, time, situation, Appropriate for age. Cardiovascular: No deficits noted. Heart tones S1 S2 present Capillary refill < 3 seconds in bilateral fingers Patient's skin is warm and dry. Respiratory: Airway is patent Respiratory effort is even, unlabored, Respiratory pattern is regular, symmetrical, Breath sounds are clear bilaterally. Respiratory: Reports cough that is non-productive, the patient has mild shortness of breath. GI: No deficits noted. No signs and/or symptoms were reported involving the gastrointestinal system. : No deficits noted. No signs and/or symptoms were reported regarding the genitourinary system. EENT: Throat is reddened has patchy exudate has enlarged tonsils bilaterally with gag reflex present, Reports blurred vision due to dryness of the eyes. Derm: No deficits noted. No signs and/or symptoms reported regarding the dermatologic system. Musculoskeletal: No deficits noted. No signs and/or symptoms reported regarding the musculoskeletal system. 21:15 Reassessment: Patient appears in no apparent distress at this time. Patient and/or bm8 family updated on plan of care and expected duration. Pain level reassessed. Patient is alert, oriented x 3, equal unlabored respirations, skin warm/dry/pink. Patient denies pain at this time. Patient states feeling better. Patient states symptoms have improved. 22:11 Reassessment: Patient appears in no apparent distress at this time. Patient and/or zm family updated on plan of care and expected duration. Pain level reassessed. Patient is alert, oriented x 3, equal unlabored respirations, skin warm/dry/pink. Patient denies pain at this time. Patient states feeling better. Patient states symptoms have improved. 23:26 Reassessment: Patient appears in no apparent distress at this time. Patient and/or bm8 family updated on plan of care and expected duration. Pain level reassessed. Patient is alert, oriented x 3, equal unlabored respirations, skin warm/dry/pink. Patient denies pain at this time. Patient states feeling better. Patient states symptoms have improved. Vital Signs: 19:12 BP 165 / 106; Pulse 114; Resp 17; Temp 98.6; Pulse Ox 99% ; Weight 95.25 kg; Height 5 me1 ft. 5 in. ; Pain 8/10; 19:55 BP 110 / 96; Pulse 95; Resp 19; Temp 99.3; Pulse Ox 99% ; Pain 7/10; bm8 22:11 BP 139 / 105; Pulse 86; Resp 17; Pulse Ox 100% ; Pain 0/10; zm 23:26 BP 144 / 88; Pulse 100; Resp 20; Temp 99.2; Pulse Ox 100% ; Pain 0/10; bm8 19:12 Body Mass Index 34.95 (95.25 kg, 165.1 cm) me1 19:12 Pain Scale: Adult me1 19:55 Pain Scale: Adult bm8 22:11 Pain Scale: Adult zm 23:26 Pain Scale: Adult bm8 Joe Coma Score: 19:55 Eye Response: spontaneous(4). Motor Response: obeys commands(6). Verbal Response: bm8 oriented(5). Total: 15. 22:11 Eye Response: spontaneous(4). Motor Response: obeys commands(6). Verbal Response: zm oriented(5). Total: 15. 23:26 Eye Response: spontaneous(4). Motor Response: obeys commands(6). Verbal Response: bm8 oriented(5). Total: 15. ED Course: 18:39 Patient arrived in ED. cj3 18:49 Jose Luis Torres PA-C is PHCP. cp 18:49 Irvin Rodriguez MD is Attending Physician. cp 19:14 Triage completed. me1 19:14 Arm band placed on Patient placed in waiting room. me1 19:46 Trinh Yang, ONEYDA is Primary Nurse. zm 19:53 Group A Streptococcus Rapid Sent. vk 19:53 COVID-19 Ag + Flu A+B Ag Sent. vk 19:53 [place] Screen Profile Sent. vk 19:53 UA Rfx Calderon Cult if indicated Sent. vk 19:53 CBC with Diff Sent. vk 19:53 CMP Sent. vk 19:53 Lipase Sent. vk 19:53 Test, Urine Sent. vk 19:53 COVID swab sent to lab. Flu and/or RSV swab sent to lab. Strep swab sent to lab. vk 19:55 Patient has correct armband on for positive identification. Bed in low position. Call bm8 light in reach. Side rails up X 1. Adult w/ patient. Client placed on continuous cardiac and pulse oximetry monitoring. NIBP monitoring applied. Pulse ox on. NIBP on. Door closed. Noise minimized. Pillow given. Verbal reassurance given. Head of bed elevated. 19:55 No provider procedures requiring assistance completed. Initial lab(s) drawn, by sc, bm8 sent to lab. Urine collected: clean catch specimen, clear. Inserted saline lock: 20 gauge in left hand, using aseptic technique. Blood collected. Flushed with 10 mL NS. 23:26 Provided Education on: post er care. bm8 23:26 IV discontinued, intact, bleeding controlled, No redness/swelling at site. Pressure bm8 dressing applied. Administered Medications: 19:55 Drug: NS 0.9% IV 1000 ml IV at 1000 ml once; to be given as a bolus over 60 minutes bm8 Route: IV; Rate: 1000 ml; Site: left hand; 23:27 Follow up: Response: No adverse reaction; IV Status: Completed infusion bm8 Medication: 19:55 VIS not applicable for this client. bm8 Outcome: 22:59 Discharge ordered by . cp 23:26 Discharged to home ambulatory, with family, bm8 23:26 Condition: stable 23:26 Discharge instructions given to patient, family, Instructed on discharge instructions, follow up and referral plans. no drinking with medication, no driving heavy equipment, medication usage, Demonstrated understanding of instructions, follow-up care, medications, Prescriptions given X 1, 23:28 Patient left the ED. bm8 Signatures: Jose Luis Torres, PAGillian PATrinh Humphreys cp RN RN Suze Velarde RN RN me1 Jessy Guan Brad, RN RN bm8 Summer Francisco cj3 Corrections: (The following items were deleted from the chart) 19:19 19:12 Chief complaint: Patient states: c/o sore throat, loss of smell, rapid HR, me1 insomnia, body aches, fever, chills, decreased appetite for about a week. Pain 8/10 me1
--- NOTE | 2024-12-16 22:59 | EDPHYS ---
Physician Documentation [facility] Name: Veda Pratt Age: 34 yrs Sex: Female : 1990 Arrival Date: 12/16/2024 Time: 18:36 Bed 2 Private MD: ED Physician Irvin Rodriguez HPI: 12/16 19:30 This 34 yrs old Female presents to ER via Ambulatory with complaints of Doesn't Feel cp Good. 19:30 The patient presents with sore throat. The patient describes throat pain as scratchy. cp Onset: The symptoms/episode began/occurred 1 week(s) ago. Associated signs and symptoms: Pertinent positives: fever, reports not feeling well, Pertinent negatives chest pain, diarrhea, vomiting, abdominal pain. 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 - Infectious Disease History:: Denies. - Social history:: Smoking status: Patient denies any tobacco usage or history of. ROS: 19:35 Constitutional: Positive for fever, cp 19:35 Eyes: Negative for injury, pain, redness, and discharge, cp 19:35 ENT: Positive for sore throat, Negative for drainage from ear(s), ear pain, difficulty swallowing, difficulty handling secretions, 19:35 Cardiovascular: Negative for chest pain, palpitations, 19:35 Respiratory: Positive for slight cough, Negative for shortness of breath, wheezing, 19:35 Abdomen/GI: Negative for abdominal pain, vomiting, diarrhea, constipation, 19:35 : Negative for urinary symptoms, vaginal bleeding, 19:35 Neuro: Negative for altered mental status, 19:35 All other systems are negative, Exam: 19:40 Constitutional: The patient appears in no acute distress, alert, awake, cp non-diaphoretic, non-toxic, well developed, well nourished, 19:40 Head/Face: Normocephalic, atraumatic. cp 19:40 Eyes: Periorbital structures: appear normal, Conjunctiva: normal, no exudate, no injection, Sclera: no appreciated abnormality, Lids and lashes: appear normal, bilaterally, 19:40 ENT: External ear(s): are unremarkable, Ear canal(s): are normal, clear, TM's: dullness, bilaterally, Nose: is normal, Mouth: Lips: moist, Oral mucosa: moist, Posterior pharynx: Airway: no evidence of obstruction, patent, Tonsils: no enlargement, erythema, that is moderate, exudate, is not appreciated, 19:40 Neck: ROM/movement: Meningeal signs: are not present, nuchal rigidity, is not appreciated, 19:40 Chest/axilla: Inspection: normal, 19:40 Cardiovascular: Rate: tachycardic, Rhythm: regular, 19:40 Respiratory: the patient does not display signs of respiratory distress, Respirations: normal, no use of accessory muscles, no retractions, labored breathing, is not present, Breath sounds: are clear throughout, no decreased breath sounds, no stridor, no wheezing, 19:40 Abdomen/GI: Inspection: abdomen appears normal, Palpation: abdomen is soft and non-tender, in all quadrants, 19:40 Skin: cellulitis, is not appreciated, no rash present. 19:40 Neuro: Orientation: to person, place \T\ time. Mentation: is normal, Motor: moves all fours, strength is normal, Sensation: is normal, Vital Signs: 19:12 BP 165 / 106; Pulse 114; Resp 17; Temp 98.6; Pulse Ox 99% ; Weight 95.25 kg; Height 5 me1 ft. 5 in. ; Pain 8/10; 19:55 BP 110 / 96; Pulse 95; Resp 19; Temp 99.3; Pulse Ox 99% ; Pain 7/10; bm8 22:11 BP 139 / 105; Pulse 86; Resp 17; Pulse Ox 100% ; Pain 0/10; zm 23:26 BP 144 / 88; Pulse 100; Resp 20; Temp 99.2; Pulse Ox 100% ; Pain 0/10; bm8 19:12 Body Mass Index 34.95 (95.25 kg, 165.1 cm) me1 19:12 Pain Scale: Adult me1 19:55 Pain Scale: Adult bm8 22:11 Pain Scale: Adult zm 23:26 Pain Scale: Adult bm8 [place] Coma Score: 19:55 Eye Response: spontaneous(4). Motor Response: obeys commands(6). Verbal Response: bm8 oriented(5). Total: 15. 22:11 Eye Response: spontaneous(4). Motor Response: obeys commands(6). Verbal Response: zm oriented(5). Total: 15. 23:26 Eye Response: spontaneous(4). Motor Response: obeys commands(6). Verbal Response: bm8 oriented(5). Total: 15. MDM: 19:11 Medical Screening Exam initiated cp 22:59 Data reviewed: vital signs, nurses notes, lab test result(s), and as a result, I will cp discharge patient. 22:59 Differential diagnosis: gingivostomatitis, group A strep tonsillitis, mononucleosis, cp tonsillitis, upper respiratory infection, uvulitis. I considered the following discharge prescriptions or medication management in the emergency department Medications were administered in the Emergency Department. See MAR. Counseling: I had a detailed discussion with the patient and/or guardian regarding the historical points, exam findings, and any diagnostic results supporting the discharge/admit diagnosis, lab results, to return to the emergency department if symptoms worsen or persist or if there are any questions or concerns that arise at home. Response to treatment: the patient's symptoms have mildly improved after treatment, and as a result, I will discharge patient. 12/16 19:25 Order name: CBC with Diff; Complete Time: 20:05 cp 12/16 20:05 Interpretation: Normal except: WBC 13.50; NEUT A 9.1; MNA 1.5. 12/16 19:25 Order name: CMP; Complete Time: 21:47 12/16 21:48 Interpretation: Normal except: GLUC 152; GFR 79; AST < 10; GLOB 4.1; A/G 1.0. cp 12/16 19:25 Order name: Lipase; Complete Time: 21:47 cp 12/16 19:25 Order name: Test, Urine; Complete Time: 21:47 cp 12/16 19:25 Order name: UA Rfx Calderon Cult if indicated; Complete Time: 21:47 cp 25 21:48 Interpretation: Normal except: [facility] Turbid; UBLD Trace. 12/16 19:25 Order name: [facility] Screen Profile; Complete Time: 21:47 cp 12/16 19:25 Order name: Group A Streptococcus Rapid; Complete Time: 21:47 cp 12/16 19:25 Order name: COVID-19 Ag + Flu A+B Ag; Complete Time: 21:47 cp 12/16 20:12 Order name: Throat Culture EDCO 12/16 19:25 Order name: IV Saline Lock; Complete Time: 19:53 cp 12/16 19:25 Order name: Labs collected and sent; Complete Time: 19:53 cp Administered Medications: 19:55 Drug: NS 0.9% IV 1000 ml IV at 1000 ml once; to be given as a bolus over 60 minutes bm8 Route: IV; Rate: 1000 ml; Site: left hand; 23:27 Follow up: Response: No adverse reaction; IV Status: Completed infusion bm8 Disposition Summary: 12/16/24 22:59 Discharge Ordered Notes: Location: Home cp Problem: new cp Symptoms: have improved cp Condition: Stable cp Diagnosis - Other malaise cp - Acute pharyngitis, unspecified cp Followup: cp - With: Private Physician - When: 2 - 3 days - Reason: Recheck today's complaints Discharge Instructions: - Discharge Summary Sheet cp - Pharyngitis cp - Sore Throat cp Forms: - Medication Reconciliation Form cp - Antibiotic Education cp - Prescription Opioid Use cp - Patient Portal Instructions cp - Leadership Thank You Letter cp Prescriptions: - Amoxicillin 875 mg Oral Tablet - take 1 tablet ORAL route every 12 hours for 10 days; 20 tablet; Refills: 0, cp Product Selection Permitted Addendum: 12/18/2024 07:04 Co-signature as Attending Physician, Irvin Rodriguez MD I reviewed the patient's care r n provided by the Advanced Practice Provider and agree with the diagnosis and treatment plan. Signatures: Dispatcher [employer] Irvin Richards MD MD rn Jose Luis Torres, SHARONAD-Dede PA-C cp Suze Velarde RN RN me1 Filemon Mao, RN RN bm8 Corrections: (The following items were deleted from the chart) 12/16 19: 19:25 CBC+H.LAB.BRZ ordered. [facility] : 19:25 COMPREHENSIVE METABOLIC PANEL+C.LAB.BRZ ordered. [facility] : 19:25 LIPASE+C.LAB.BRZ ordered. [facility] : 19:25 Test, Urine+UC.LAB.BRZ ordered. [facility] 19:25 UA Rfx Calderon Cult if indicated+U.LAB.BRZ ordered. EDMS EDMS :25 MONO SCREEN PROFILE+I.LAB.BRZ ordered. EDMS EDMS : 19:25 Group A Streptococcus Rapid Sc+I.LAB.BRZ ordered. EDMS EDMS 19:25 COVID-19 Ag + Flu A+B Ag+I.LAB.BRZ ordered. EDMS EDMS
[2024-12-17 00:33] VITALS: O2SAT 100
[2024-12-17 00:35] VITALS: BP 144/88; TEMP 99.2
== END 2024-12-16 23:28 | disposition home or self-care (01) ==
LOC: ER 18:36
DX: J02.9 Acute pharyngitis, unspecified (principal); R53.81 Other malaise; R50.9 Fever, unspecified; Z11.52 Encounter for screening for COVID-19
CPT/HCPCS: 36415; 80053; 81001; 81025; 83690; 85025; 86308; 87070; 87428; 96360; 96361; 99284; J7030